=== PATIENT | female | born 1940 | race Caucasian/White ===

== ENCOUNTER 2022-05-08 10:40 | Inpatient (IN) ==
--- NOTE | 2022-05-08 11:34 | XRay Report ---
XR chest 2V PA/lateral CLINICAL HISTORY: Stroke alert. COMPARISON STUDY: No previous studies for comparison. FINDINGS: Left subclavian [id number] is in place. Tip projects over the distal brachiocephalic vei n. Cardiomegaly is noted without evidence for pulmonary edema. Linear bibasilar densities favor atele ctasis or scarring. There is no consolidation to suggest pneumonia. There is no evidence for pulmonar y edema. A moderate to large hiatal hernia is incidentally noted. IMPRESSION: 1. No acute cardiopulmonary findings. 2. Cardiomegaly. 3. Hiatal hernia. ACT 112: Negative or not required by law. Electronically signed by: David Duran M.D. 05/08/2022 11:32 AM
[2022-05-08 11:53] LABS: Hematocrit (blood only) 44.6 % (34.1-44.9); Hemoglobin 14.9 g/dl (12.0-16.0); Mean Corpuscular Hemoglobin 29.2 pg (25.0-34.0); Mean Corpuscular Hgb Conc 33.4 g/dL (32.0-36.0); Mean Corpuscular Volume 87.3 fL (80.0-100.0); Mean Platelet Volume 9.9 fL (9.4-12.3); Platelet Count 283 K/uL (130-400); RDW Coefficient of Variation 13.3 % (11.5-14.5); RDW Standard Deviation 42.8 fL (36.4-46.3); Red Blood Count 5.11 M/uL (3.93-5.22); White Blood Count 10.54 K/ul (4.8-10.8)
[2022-05-08 12:06] LABS: Partial Thromboplastin Ratio 1.1; Partial Thromboplastin Time 30.7 Seconds (21.0-31.0); Prothrombin Time 10.9 Seconds (9.0-12.0)
[2022-05-08 12:19] LABS: Albumin Globulin Ratio 1.1 (0.9-2); BUN Creatinine Ratio 17.6 (10-20); Bilirubin,Total 0.7 mg/dl (0.2-1.0); Calcium 9.3 mg/dl (8.5-10.1); Creatinine Clr Calc Pharmacy 48.5 ml/min; Est GFR (African American) 86.8 ml/min; Est GFR (Non-African American) 74.9 ml/min; Globulin 3.5 gm/dl (2.5-4.0); Magnesium 1.8 mg/dl (1.7-2.4); Potassium 3.9 mmol/L (3.5-5.1); Total Protein 7.5 gm/dl (6.0-8.3)
[2022-05-08 12:32] LABS: Influenza A virus by PCR Negative (Neg); Influenza B virus by PCR Negative (Neg); RSV by PCR Negative (Neg)
[2022-05-08 14:01] LABS: SARS CoV2 RNA(COVID-19) Ceph POSITIVE (Negative)
--- NOTE | 2022-05-08 14:35 | CT Scan Report ---
CT head/brain wo con CLINICAL HISTORY: 81 years-old Female with Stroke Alert. Acute stroke like symptoms TECHNIQUE: Multiple axial CT images of the head were obtained without contrast. A dose lowering tech nique was utilized adhering to the principles of ALARA. CT DOSE: 821.00 mGycm COMPARISON: None. FINDINGS: No acute intracranial hemorrhage, midline shift, intracranial mass, hydrocephalus, territorial ischem ia or abnormal extra-axial collection. Mild involutional changes of the brain parenchyma. Patchy whit e matter hypodensities suggestive of chronic microvascular ischemic disease. Cerebral vascular calcif ications. The calvarium is intact. Prior bilateral lens repair. Paranasal sinuses and left mastoid air cells ar e clear. Large right mastoid effusion. IMPRESSION: 1. No acute intracranial abnormality. 2. Large right mastoid effusion. ACT 112: Negative or not required by law. The above report was generated using voice recognition software. It may contain grammatical, syntax o r spelling errors. Electronically signed by: Cl Rangel M.D. 05/08/2022 2:34 PM
--- NOTE | 2022-05-08 17:36 | Emergency Department Note ---
Impression & Plan Slurred speech, Trouble swallowing, COVID-19, Myasthenia gravis with acute exacerbation ED Provider Note NAME: MATTI SYED AGE: 81 SEX: F : 1940 ARRIVES VIA: Walk-In INFORMANT: [Patient][daughter] ED PROVIDER(S): [Chandrakant Trujillo MD] CHIEF COMPLAINT: Stroke symptoms HISTORY OF PRESENT ILLNESS: The patient is an 81-year-old female who presents with about 24 hours of symptoms. She has a history of myasthenia. She is due to receive IVIG in about 3 days. The patient is followed by Dr. Luis of neurology here at [facility]. The patient yesterday began having difficulty with her speech and difficulty swallowing. She has a history of aspiration from trouble swallowing. She denies extremity weakness. The patient did have a fever yesterday, none today. She denies any cough or shortness of breath. No vomiting or diarrhea, no urinary complaints. No chest pain or abdominal pain. Patient's daughter recently had a cold. REVIEW OF SYSTEMS: See HPI for pertinent positives and negatives. A total of ten systems were r eviewed and were otherwise negative. PMHx/PSHx: See Below SOCIAL HISTORY: See Below. PHYSICAL EXAM: GENERAL: Patient is in no acute distress. HEENT: No acute trauma, normocephalic atraumatic, mucous membranes moist, no nasal congestion, no scleral icterus. NECK: No stridor, no adenopathy, no meningismus, trachea is midline. LUNGS: Clear to auscultation bilaterally, no wheeze, no rhonchi, breath sounds equal. HEART: Without murmurs gallops or rubs, regular rate and rhythm. ABDOMEN: Soft, nontender, bowel sounds positive, no peritonitis. EXTREMITIES: No cyanosis or edema, full range of motion of all the joints without pain or difficulty, no signs for acute trauma. NEUROLOGIC: Oriented x 3. No extremity deficits appreciated. Patient's speech is somewhat garbled/slurred and faint. No facial droop. SKIN: No rash, no jaundice, no diaphoresis. DIFFERENTIAL DIAGNOSIS: Myasthenia's gravis flare, pneumonia, infection, UTI, RSV, influenza, COVID-19, anemia, electrolyte imbalance, stroke, dysrhythmia, among others. EMERGENCY DEPARTMENT COURSE/PROCEDURES: ECG: Indication was possible stroke. The ECG shows a normal sinus rhythm with a rate of 91. 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 There is no ST elevation, no PVCs. The QTc is 494. No old ECGs available for comparison. Continuous Cardiac Monitoring: An order was placed for continuous cardiac monitoring. The monitor shows a rate of 95 with normal sinus rhythm. MEDICAL DECISION MAKING: There is no leukocytosis or concerning anemia. There is a normal platelet co unt. No coagulopathy. No significant electrolyte abnormality or renal failure. No concerning liver enzyme elevation. COVID test returned positive. Influenza and RSV test returned negative. ECG showed a normal sinus rhythm, no ischemia. Brain CT did not show any acute bleed or mass-effect. A right mastoid effusion was seen. Chest x-ray did not show CHF or pneumonia. On exam, patient has some slurred and thickened speech. No extremity weakness or deficits. She was not hypoxic or toxic. I did speak with neurology. IVIG was recommended. The patient does require a hospital stay though for this treatment. She appears to be having a myasthenia gravis flare. I believe the flare has been brought on by the COVID-19 infection. I did speak with the patient and her family, I spoke with case management, the on-call hospitalist was consulted. Past Med/Surg History Medical History Fibromyalgia History of asthma Hx of myasthenia gravis Hx of primary hypertension Osteoarthritis Port-A-Cath in place Surgical History H/O blepharoplasty june eyes History of tonsillectomy and adenoidectomy Hx of hysterectomy Family History Father Heart valve replaced Cancer of esophagus Mother Diabetes Social History Smoking Status: Never smoker Second Hand Exposure: No; Do You Dip or Chew Tobacco: No; Hx Alcohol Use: Yes Alcohol type: beer and wine Alcohol Intake Frequency: Monthly or Less Hx Substance Use: No Preferred Language: Sami Communication Ability: Effective Communication Ability Comment: sppech low volume and needs more effort Visual Impairment: Limited Hearing Ability: Use of Hearing Aid Outreach Team Member Required: No Beliefs That Will Affect Care: None marital status details: Current Living Situation: Alone Current Living Situation Comment: daughter very involved and availble to patient current occupational status: retired Feels Safe at Home: Yes Safety Concerns: Feels Safe At This Time Childhood Exposure to Second-Hand Smoke: Yes caffeine: Yes (tea and pepsi) Dental Care, Regularly: No Physical Activity Frequency: 3-4 Times per Week Seatbelt Use: always Sunscreen Use: Yes Assistive Devices: Denture - Upper, Denture - Lower, Glasses, Hearing Aid - Left and Hearing Aid - Right Allergies Allergies Allergy/AdvReac Type Severity Reaction Status Date / Time clindamycin Allergy Intermediate Rash Verified 04/13/22 09:01 Penicillins Allergy Intermediate Rash Verified 04/13/22 09:01 diazepam [From Valium] AdvReac Severe Vomiting Verified 04/13/22 09:01 mometasone furoate AdvReac Intermediate Vomiting Verified 04/13/22 09:01 [From Nasonex] Home Meds Home Medications Medication Instructions Recorded Confirmed cyclosporine 0.05 % eye drops in a 1 drp ophthalmic (eye) Q12H 01/26/22 05/08/22 dropperette fluticasone fur. 100 mcg-umeclid 1 inh inhalation DAILY 01/26/22 05/08/22 62.5 mcg-vilant 25 mcg inhalat.powder (Trelegy Ellipta) losartan 100 mg tablet (Cozaar) 100 mg PO DAILY 01/26/22 05/08/22 mirabegron 50 mg tablet,extended 50 mg PO DAILY 01/26/22 05/08/22 release 24 hr (Myrbetriq) montelukast 10 mg tablet 10 mg PO DAILY 01/26/22 05/08/22 (Singulair) folic acid 1 mg tablet 1 mg PO DAILY 02/16/22 05/08/22 Previous Rx's Medication Instructions Recorded pyridostigmine bromide 60 mg 90 mg PO QID 30 days #180 tabs 01/26/22 tablet (Mestinon) Gammagard Liquid 10 % injection 30 g IV Q4WK 28 days #300 mL 02/09/22 solution (immun glob G(IgG)-gly-IgA ov50) glycopyrrolate 1 mg tablet 1 mg PO DAILY #30 tabs 04/17/22 Results & Data (ED) Vital Signs Vital Signs - 24 hr 05/08/22 10:47 Temperature 36.3 C L Temperature Source Oral Pulse Rate 95 H Respiratory Rate 20 Respiratory Effort / Characteristics Non-Labored Spontaneous Respiratory Depth Normal Respiratory Pattern Regular Blood Pressure 177/82 H Blood Pressure Mean 113 Pulse Oximetry 95 Oxygen Delivery Method Room Air Sepsis Recent Fever Within 48 Hours Yes Sepsis New/Unexplained Change in Mental Status No Sepsis Action Taken by Nursing No Action Required Home Medications Current Medication List: was personally reviewed by me Laboratory Data Attestation: I reviewed the patient's lab results. Result diagrams: 05/08/22 11:42 05/08/22 11:42 Lab Results 05/08/22 05/08/22 05/08/22 Range/Units 11:40 11:42 11:42 WBC 10.54 (4.8-10.8) K/ul RBC 5.11 (3.93-5.22) M/uL Hgb 14.9 (12.0-16.0) g/dl Hct 44.6 (34.1-44.9) % MCV 87.3 (80.0-100.0) fL MCH 29.2 (25.0-34.0) pg MCHC 33.4 (32.0-36.0) g/dL RDW Std Deviation 42.8 (36.4-46.3) fL RDW Coeff of Rowan 13.3 (11.5-14.5) % Plt Count 283 (130-400) K/uL MPV 9.9 (9.4-12.3) fL PT 10.9 (9.0-12.0) Seconds INR 1.0 (0.9-1.1) APTT 30.7 (21.0-31.0) Seconds PTT Ratio 1.1 Sodium (136-145) mmol/L Potassium (3.5-5.1) mmol/L Chloride (98-107) mmol/L Carbon Dioxide (21-32) mmol/L Anion Gap (3-11) BUN (6-23) mg/dl Creatinine (0.6-1.2) mg/dl Est Cr Clr Drug Dosing ml/min Est GFR ( Amer) ml/min Est GFR (Non-Af Amer) ml/min BUN/Creatinine Ratio (10-20) Glucose (70-99(Fasting)) mg/dl Calcium (8.5-10.1) mg/dl Magnesium (1.7-2.4) mg/dl Total Bilirubin (0.2-1.0) mg/dl AST (13-39) U/L ALT (7-52) U/L Alkaline Phosphatase (34-104) U/L C-Reactive Protein (0-0.5) mg/dl Total Protein (6.0-8.3) gm/dl Albumin (3.4-5.0) gm/dl Globulin (2.5-4.0) gm/dl Albumin/Globulin Ratio (0.9-2) SARS-CoV-2 (PCR) POSITIVE A* (Negative) Influenza Type A (PCR) Negative (Neg) Influenza Type B (PCR) Negative (Neg) RSV (RT-PCR) Negative (Neg) 05/08/22 05/08/22 Range/Units 11:42 11:42 WBC (4.8-10.8) K/ul RBC (3.93-5.22) M/uL Hgb (12.0-16.0) g/dl Hct (34.1-44.9) % MCV (80.0-100.0) fL MCH (25.0-34.0) pg MCHC (32.0-36.0) g/dL RDW Std Deviation (36.4-46.3) fL RDW Coeff of Rowan (11.5-14.5) % Plt Count (130-400) K/uL MPV (9.4-12.3) fL PT (9.0-12.0) Seconds INR (0.9-1.1) APTT (21.0-31.0) Seconds PTT Ratio Sodium 138 (136-145) mmol/L Potassium 3.9 (3.5-5.1) mmol/L Chloride 103 (98-107) mmol/L Carbon Dioxide 29 (21-32) mmol/L Anion Gap 6 (3-11) BUN 13 (6-23) mg/dl Creatinine 0.74 (0.6-1.2) mg/dl Est Cr Clr Drug Dosing 48.5 ml/min Est GFR ( Amer) 86.8 ml/min Est GFR (Non-Af Amer) 74.9 ml/min BUN/Creatinine Ratio 17.6 (10-20) Glucose 107 H (70-99(Fasting)) mg/dl Calcium 9.3 (8.5-10.1) mg/dl Magnesium 1.8 (1.7-2.4) mg/dl Total Bilirubin 0.7 (0.2-1.0) mg/dl AST 15 (13-39) U/L ALT 10 (7-52) U/L Alkaline Phosphatase 125 H (34-104) U/L C-Reactive Protein 4.84 H (0-0.5) mg/dl Total Protein 7.5 (6.0-8.3) gm/dl Albumin 4.0 (3.4-5.0) gm/dl Globulin 3.5 (2.5-4.0) gm/dl Albumin/Globulin Ratio 1.1 (0.9-2) SARS-CoV-2 (PCR) (Negative) Influenza Type A (PCR) (Neg) Influenza Type B (PCR) (Neg) RSV (RT-PCR) (Neg) Administered Medications Acetaminophen (Acetaminophen 500 Mg Tab) 500 mg PO PRE-TREAT@0 [facility] Stop: 05/12/22 22:01 Last Admin: 05/08/22 22:29 Dose: 500 mg Documented By: ANDREW Diphenhydramine HCl (Diphenhydramine 50 Mg/Ml Vial) 12.5 mg IV PRE-TREAT@0 [facility] Stop: 05/12/22 22:01 Last Admin: 05/08/22 22:29 Dose: 12.5 mg Documented By: ANDREW Guaifenesin (Guaifenesin 600 Mg Tabcr) 1,200 mg PO Q12 [facility] Stop: 06/07/22 23:19 Last Admin: 05/08/22 23:50 Dose: 1,200 mg Documented By: ANDREW Heparin Sodium (Porcine) (Heparin Sod 5,000 Unit/0.5 Ml Vial) 5,000 units SQ Q12 [facility] Stop: 06/07/22 21:31 Last Admin: 05/08/22 22:28 Dose: 5,000 units Documented By: ANDREW Lactated Ringer's (Lr) 1,000 mls @ 80 mls/hr IV .[id number] [facility] Stop: 06/07/22 18:44 Last Infusion: 05/09/22 00:08 Dose: 80 mls/hr Documented By: Infusion: 05/08/22 22:50 Dose: 0 mls/hr Documented By: Admin: 05/08/22 19:33 Dose: 80 mls/hr Documented By: ARIC Immune Globulin (Octagam 10%) 200 mls @ 39 mls/hr IV DAILY@2300 [facility]; Protocol Stop: 05/13/22 04:08 Last Admin: 05/09/22 00:01 Dose: 1 mg/kg/min, 39 mls/hr Documented By: ANDREW Immune Globulin (Octagam 10%) 50 mls @ 39 mls/hr IV DAILY@2230 [facility]; Protocol Stop: 05/12/22 23:47 Last Titration: 05/09/22 00:09 Dose: 0 mg/kg/min, 0 mls/hr Documented By: Admin: 05/08/22 22:48 Dose: 1 mg/kg/min, 39 mls/hr Documented By: ANDREW Miscellaneous (Order Awaiting Action: Cyclosporine 0.05 % Dropperette) 1 each N/A QS [facility] Stop: 06/08/22 00:00 Last Admin: 05/09/22 00:08 Dose: Not Given Documented By: ANDREW Pyridostigmine [place] (Pyridostigmine [place] 60 Mg Tab) 90 mg PO QID [facility] Stop: 06/07/22 21:31 Last Admin: 05/08/22 22:28 Dose: 90 mg Documented By: ANDREW Discontinued Medications Immune Globulin (Immune Globulin (Human) Soln ) 1 each IV DAILY [facility] Stop: 06/07/22 21:31 Last Admin: 05/08/22 23:00 Dose: Not Given Documented By: ANDREW Imaging Data Radiologist's Impression: Head CT 05/08/22 11:47 CT head/brain wo con CLINICAL HISTORY: 81 years-old Female with Stroke Alert. Acute stroke like symptoms TECHNIQUE: Multiple axial CT images of the head were obtained without contrast. A dose lowering technique was utilized adhering to the principles of ALARA. CT DOSE: 821.00 mGycm COMPARISON: None. FINDINGS: No acute intracranial hemorrhage, midline shift, intracranial mass, hydrocephalus, territorial ischemia or abnormal extra-axial collection. Mild involutional changes of the brain parenchyma. Patchy white matter hypodensities suggestive of chronic microvascular ischemic disease. Cerebral vascular calcifications. The calvarium is intact. Prior bilateral lens repair. Paranasal sinuses and left mastoid air cells are clear. Large right mastoid effusion. IMPRESSION: 1. No acute intracranial abnormality. 2. Large right mastoid effusion. ACT 112: Negative or not required by law. The above report was generated using voice recognition software. It may contain grammatical, syntax or spelling errors. Electronically signed by: Cl Rangel M.D. 05/08/2022 2:34 PM XR chest 2V PA/lateral CLINICAL HISTORY: Stroke alert. COMPARISON STUDY: No previous studies for comparison. FINDINGS: Left subclavian Hdiuhe-i-Xlig is in place. Tip projects over the distal brachiocephalic vein. Cardiomegaly is noted without evidence for pulmonary edema. Linear bibasilar densities favor atelectasis or scarring. There is no consolidation to suggest pneumonia. There is no evidence for pulmonary edema. A moderate to large hiatal hernia is incidentally noted. IMPRESSION: 1. No acute cardiopulmonary findings. 2. Cardiomegaly. 3. Hiatal hernia. Discharge Plan Visit Data Chief Complaint: Stroke/CVA Symptoms Stated Complaint: TROUBLE SPEAKING/SWALLOWING, EYE PROBLEMS ED Provider: Chandrakant Trujillo Discharge Problem: Slurred speech, Trouble swallowing, COVID-19, Myasthenia gravis with acute exacerbation Patient Disposition: Admitted As Inpatient Condition: Fair Discharge Instructions Interventions: ED Discharge Assessment Last Done: 05/08/22 20:59
--- NOTE | 2022-05-08 18:18 | History & Physical Report ---
Date of Service May 08, 2022 Assessment & Plan (1) Myasthenia gravis: Plan: oCrtney is an 81-year-old female the past medical history of myasthenia gravis who presents with worsened myasthenia symptoms and who is COVID-positive. COVID-positive Patient is vaccinated/boosted No respiratory symptoms, some feeling feverish 1 day ago but presented with worsened myasthenia symptoms No hypoxia CRP pending Defer steroids at this time as not hypoxic, may have secondary benefit with myasthenia Acute myasthenia exacerbation Neurology consulted. Recommended standard dosing of IVIG. N.p.o. pending improvement in neck/swallow function No hypoxia, lungs are clear, low suspicion for aspiration or superimposed pneumonia at this time Follow on aspiration precautions IVIG 400 mg/kg x 5-day dose ordered, can adjust per neurology recommendation/follow-up Continue pyridostigmine Hypertension Continue losartan COPD No acute exacerbation Continue Trelegy Albuterol as needed His breathing on room air DVT prophylaxis: Discussed for/benefits of COVID DVT prophylaxis. Patient hesitant due to easy bleeding in the past and low creatinine clearance. Will use heparin twice daily at this time after shared decision making CODE STATUS: Full code Disposition: Medical/surgical, if concerns for worsening airway transfer to telemetry. Patient is guarding airway appropriately at time of visit. Diet: N.p.o. (2) COVID: History of Present Illness Primary Care Provider: Femi Moreno Suspect myesthenia gravis flare 2/2 COVID PNA. Daughter with cold last week Pt with grabling, weak voice last week increased trouble swallowing in last 24 hours Hx aspiration with m. gravis flares in the past Fever yesterday, none today no body aches COVID+ Nuerology: IVIG Dr. Mesha hernandez. Neuro consulted for AM. Denies cough, shortness of breath, lightheadedness, dizziness, chest pain, chest pressure. Patient Dors she is tired and fatigued, and cannot swallow. Is having difficulty speaking. She reports at baseline her voice is clear and she does not have any problems with eye drooping, dysphagia. Please have occurred in the last 24 hours consistent with prior flares. She does get IVIG as an outpatient, was due next week for her next routine dose. Has never been on steroids before. Daughter with COVID at home. Patient has not had any shortness of breath, difficulty breathing but did notice worsened difficulty with speech and swallowing similar to prior dysarthria flares.Takes pyridostigmine, glycopyrrolate, cyclosporine eyedrops at home in addition to her inhaler, mirabegron, montelukast. Has a port which they normally use for IVIG infusions CT-H: 1. No acute intracranial abnormality. 2. Large right mastoid effusion. CXR: 1. No acute cardiopulmonary findings. 2. Cardiomegaly.3. Hiatal hernia. CRP pending M. gravix 400mg/kg daily x5 days Medical History: Reviewed Medications: Reviewed Surgical History: Reviewed Allergies: Reviewed Social History: Reviewed Code Status: Full code Allergies Allergy/AdvReac Type Severity Reaction Status Date / Time clindamycin Allergy Intermediate Rash Verified 04/13/22 09:01 Penicillins Allergy Intermediate Rash Verified 04/13/22 09:01 diazepam [From Valium] AdvReac Severe Vomiting Verified 04/13/22 09:01 mometasone furoate AdvReac Intermediate Vomiting Verified 04/13/22 09:01 [From Nasonex] Home Medications Medication Instructions Recorded Confirmed Type cyclosporine 0.05 % eye drops in a 1 drp ophthalmic (eye) Q12H 01/26/22 04/13/22 History dropperette fluticasone fur. 100 mcg-umeclid 1 inh inhalation DAILY 01/26/22 04/13/22 History 62.5 mcg-vilant 25 mcg inhalat.powder (Trelegy Ellipta) losartan 100 mg tablet (Cozaar) 100 mg PO DAILY 01/26/22 04/13/22 History mirabegron 50 mg tablet,extended 50 mg PO DAILY 01/26/22 04/13/22 History release 24 hr (Myrbetriq) montelukast 10 mg tablet 10 mg PO DAILY 01/26/22 04/13/22 History (Singulair) pyridostigmine bromide 60 mg 90 mg PO QID 30 days #180 tabs 01/26/22 04/13/22 Rx tablet (Mestinon) Gammagard Liquid 10 % injection 30 g IV Q4WK 28 days #300 mL 02/09/22 04/13/22 Rx solution (immun glob G(IgG)-gly-IgA ov50) folic acid 1 mg tablet 1 mg PO DAILY 02/16/22 04/13/22 History glycopyrrolate 1 mg tablet 1 mg PO DAILY #30 tabs 04/17/22 Rx Past Med/Surg History Medical History (Updated 05/08/22 @ 18:39 by Bryan Moreira MD) Fibromyalgia History of asthma Hx of myasthenia gravis Hx of primary hypertension Osteoarthritis Port-A-Cath in place Surgical History H/O blepharoplasty june eyes History of tonsillectomy and adenoidectomy Hx of hysterectomy Family History Father Heart valve replaced Cancer of esophagus Mother Diabetes Social History Smoking Status: Never smoker Hx Alcohol Use: Yes Alcohol type: wine Alcohol Intake Frequency: Monthly or Less Hx Substance Use: No Preferred Language: Greek Communication Ability: Effective Visual Impairment: Limited Hearing Ability: Use of Hearing Aid Beliefs That Will Affect Care: Spiritual marital status details: Current Living Situation: Alone and Family Current Living Situation Comment: lives with daughter current occupational status: retired Feels Safe at Home: Yes Childhood Exposure to Second-Hand Smoke: Yes caffeine: Yes (tea and pepsi) Dental Care, Regularly: No Physical Activity Frequency: 3-4 Times per Week Seatbelt Use: always Sunscreen Use: Yes Review of Systems Review of Systems: All systems reviewed & are unremarkable except as noted in Subjective Physical Exam Physical Exam: General: Fatigued, sitting in chair, slightly slumped over. Dysarthria is prominent. Oriented to name, date, and place. HEENT: Atraumatic, normocephalic. Pupils equal and reactive to light. Vertical gaze quickly fatigues. Vision/hearing grossly intact. Left eye droop. Difficulty speaking/dysarthria as noted Pulm: CTAB A&P. -wheezes, -rales, -rhonchi. Symmetrical chest rise. No increase in work of breathing. No respiratory distress. No airway obstruction. Cardiac: Tachycardic. Radial pulses intact and symmetrical. Extremities: Warm, dry. 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 Sensation of soft touch intact in hands and feet. Results & Data Results & Data ([facility]) Vital Signs (Past 12 Hours) Vital Signs Temp Pulse Resp BP Pulse Ox O2 Del Method 05/08/22 10:47 36.3 C L 95 H 20 177/82 H 95 Room Air PG Care Time/CCT Total # of Minutes Spent Total Time Spent with Patient: Total time spent is greater than 50% in coordination of care (as documented) at patient's floor/unit and/or counseling patient: Coding Level of Care Code 32136 Initial Inpt Care Lvl 2 Diagnoses Myasthenia gravis G70.00 COVID U07.1
[2022-05-08] MEDS: LACTATED RINGER'S 1,000 ML IV SCH (19:33)
[2022-05-08] MEDS ORDERED: IMMUNE GLOBULIN (HUMAN) SOLN IV SCH (21:32)
[2022-05-08] MEDS: HEPARIN SOD 5,000 UNIT/0.5 ML VIAL SQ SCH (22:28)
[2022-05-08] MEDS: pyRIDostigmine bromide 60 MG TAB PO SCH (22:28)
[2022-05-08] MEDS: ACETAMINOPHEN 500 MG TAB PO SCH (22:29)
[2022-05-08] MEDS: diphenhydrAMINE 50 MG/ML VIAL IV SCH (22:29)
[2022-05-08] MEDS: Octagam 10% IVIG 5 gram bottle IV SCH (22:48)
[2022-05-08] MEDS: guaiFENesin 600 MG TABCR PO SCH (23:50)
[2022-05-09] MEDS: IMMUN GLOBG(IGG)/MALT/IGA OV50 200 ML IV SCH (00:01)
[2022-05-09] MEDS ORDERED: NON-FORMULARY MEDICATION (Fluticasone-Umeclidin-Vilanter [Trelegy Ellipta] 100-62.5-25 mcg INH SCH (09:00)
[2022-05-09] MEDS: guaiFENesin 600 MG TABCR PO SCH ×2 (09:34→20:48)
[2022-05-09] MEDS: GLYCOPYRROLATE 1 MG TAB PO SCH (09:35)
[2022-05-09] MEDS: MIRABEGRON ER 25 MG TAB PO SCH (09:35)
[2022-05-09] MEDS: LOSARTAN POTASSIUM 50 MG TAB PO SCH (09:35)
[2022-05-09] MEDS: pyRIDostigmine bromide 60 MG TAB PO SCH ×4 (09:36→20:48)
[2022-05-09] MEDS: MONTELUKAST SODIUM 10 MG TABLET PO SCH (09:36)
[2022-05-09] MEDS: FOLIC ACID 1 MG TAB PO SCH (09:36)
[2022-05-09] MEDS: ACETAMINOPHEN 325 MG TAB PO PRN ×2 (09:38→19:43)
[2022-05-09] MEDS: HEPARIN SOD 5,000 UNIT/0.5 ML VIAL SQ SCH ×2 (09:39→20:48)
[2022-05-09] MEDS: FLUTICASONE FUROATE 100MCG 14 PUFFS/INHALER INH SCH (09:43)
[2022-05-09] MEDS: UMECLIDINIUM/VILANTEROL 62.5/25MCG 7 PUFFS/INHALER INH SCH (09:43)
[2022-05-09] MEDS: LACTATED RINGER'S 1,000 ML IV SCH ×2 (09:49→23:07)
--- NOTE | 2022-05-09 11:02 | Neurology Consultation ---
Date of Consultation May 09, 2022 Assessment & Plan (1) Myasthenia gravis with acute exacerbation: Myasthenia gravis, generally well controlled but now with acute flare. She was due to have her normal IVIG in the coming week, but may have flared due to the COVID infection. She received 1 infusion of IVIG last evening, will plan for a total course of 5 treatments over the next 4 days. Continue Mestinon at home dose. A pulse treatment of steroids might significantly worsen the patient's myasthenia, but if absolutely needed from a pulmonary standpoint, it should be undertaken. However would use the lowest dose possible. Respiratory reports patient had NIF of -30 last evening. Have asked them to begin checking NIF and FVC every 8 hours for 48 hours. Is very important that the patient continue to receive her oral Mestinon exactly as prescribed. If any point she becomes unable to take them, a tube should be placed temporarily so that they can be administered. History of Present Illness Reason for Consultation: Myasthenia gravis Attending Physician: Shawn Washington History of Present Illness Patient says her myasthenia was well controlled until 2 days ago, when she began to have slurred speech and some trouble swallowing. Apparently she is relatively asymptomatic at baseline. The last time she had symptoms was January of this year, relieved by IVIG. Apparently she is maintained on IVIG 1 treatment monthly. Apparently does not receive any other type of immunosuppressive and never did. Also on Mestinon, she reports faithful compliance. Was found to have COVID this admission, she reports minimal symptoms however. Says she has never had shortness of breath associated with her myasthenia, has never been on a ventilator. No weakness in the limbs. Denies any new medications Allergies Allergy/AdvReac Type Severity Reaction Status Date / Time clindamycin Allergy Intermediate Rash Verified 04/13/22 09:01 Penicillins Allergy Intermediate Rash Verified 04/13/22 09:01 diazepam [From Valium] AdvReac Severe Vomiting Verified 04/13/22 09:01 mometasone furoate AdvReac Intermediate Vomiting Verified 04/13/22 09:01 [From Nasonex] Home Medications Medication Instructions Recorded Confirmed Type cyclosporine 0.05 % eye drops in a 1 drp ophthalmic (eye) Q12H 01/26/22 05/08/22 History dropperette fluticasone fur. 100 mcg-umeclid 1 inh inhalation DAILY 01/26/22 05/08/22 History 62.5 mcg-vilant 25 mcg inhalat.powder (Trelegy Ellipta) losartan 100 mg tablet (Cozaar) 100 mg PO DAILY 01/26/22 05/08/22 History mirabegron 50 mg tablet,extended 50 mg PO DAILY 01/26/22 05/08/22 History release 24 hr (Myrbetriq) montelukast 10 mg tablet 10 mg PO DAILY 01/26/22 05/08/22 History (Singulair) pyridostigmine bromide 60 mg 90 mg PO QID 30 days #180 tabs 01/26/22 05/08/22 Rx tablet (Mestinon) Gammagard Liquid 10 % injection 30 g IV Q4WK 28 days #300 mL 02/09/22 05/08/22 Rx solution (immun glob G(IgG)-gly-IgA ov50) folic acid 1 mg tablet 1 mg PO DAILY 02/16/22 05/08/22 History glycopyrrolate 1 mg tablet 1 mg PO DAILY #30 tabs 04/17/22 05/08/22 Rx Patient History Medical History Fibromyalgia History of asthma Hx of myasthenia gravis Hx of primary hypertension Osteoarthritis Port-A-Cath in place Surgical History H/O blepharoplasty june eyes History of tonsillectomy and adenoidectomy Hx of hysterectomy Family History Father Heart valve replaced Cancer of esophagus Mother Diabetes Social History Smoking Status: Never smoker Second Hand Exposure: No; Do You Dip or Chew Tobacco: No; Hx Alcohol Use: Yes Alcohol type: beer and wine Alcohol Intake Frequency: Monthly or Less Hx Substance Use: No Preferred Language: Stateless Communication Ability: Effective Communication Ability Comment: sppech low volume and needs more effort Visual Impairment: Limited Hearing Ability: Use of Hearing Aid [employer] Required: No Beliefs That Will Affect Care: None marital status details: Current Living Situation: Alone Current Living Situation Comment: daughter very involved and availble to patient current occupational status: retired Feels Safe at Home: Yes Safety Concerns: Feels Safe At This Time Childhood Exposure to Second-Hand Smoke: Yes caffeine: Yes (tea and pepsi) Dental Care, Regularly: No Physical Activity Frequency: 3-4 Times per Week Seatbelt Use: always Sunscreen Use: Yes Assistive Devices: Denture - Upper, Denture - Lower, Glasses, Hearing Aid - Left and Hearing Aid - Right Review of Systems Review of Systems: As above, no trips or falls. No recent head injuries. Physical Exam Physical Exam: Awake, alert, attentive. In no distress. She is oriented. Speech is slightly slurred but intelligible. Slight nasal quality to voice. Repetitive phonemes are mostly intact. Seems to have no trouble swallowing her secretions. Pupils are equal. There is a slight ptosis on the left. Ocular movements are full. No resting facial asymmetry, but on activation of the facial muscles, definite bifacial weakness. She can fully open and close both eyes with effort. She can retract lips reasonably well bilaterally. Strength in the limbs is reasonably good for age. Fine finger movements and finger-nose testing done well. Results & Data ([facility]) Vital Signs (Past 12 Hours) Vital Signs Temp Pulse Resp BP Pulse Ox O2 Del Method 05/09/22 07:55 36.7 C 89 16 146/80 H 92 Room Air 05/09/22 05:35 83 20 94 Room Air 05/09/22 05:32 36.7 C 86 22 177/99 H 94 Room Air 05/08/22 23:30 18 Room Air
--- NOTE | 2022-05-09 14:47 | Hospitalist Progress Note ---
Date of Service May 09, 2022 Assessment & Plan (1) Myasthenia gravis: Plan: with exacerbation - 2nd to #2. at high risk of further decompensation and respiratory failure. appreciate neurology consultation. cont mestinon qid. IVIG x 5 days per neuro - first dose yesterday, 2nd dose today. cont q8h NIF readings per respiratory. will move patient from 3rd floor to PCU for closer observation. (2) COVID: Plan: COVID-19, just a few days into her illness. o2 sats borderline low - placed 2 L NC O2 on her this afternoon. start Remdesivir x 5 days with serial ast/alt/Cr levels. defer on steroids for now. supportive care, flutter valve, lay on side as much as possible, etc. add mucinex BID. check CRP in am. (3) Asthma with exacerbation: Plan: 2nd to COVID-19 infection. defer on steroids for now unless there is worsening hypoxia/wheezing/o2 requirement/etc. (4) DVT prophylaxis: Plan: heparin 5000 BID (5) Dysphagia: Plan: appreciate speech consultation (6) Chronic hypertension: Plan: cont losartan (7) Candidiasis of mouth and esophagus: Plan: suspected start nystatin 5cc qid swish/spit Plan attempted to call family this evening - left message Admission and Anticipated Discharge Date Admission Date: May 08, 2022 Subjective patient feels tired & exhausted just wants to sleep coughing - no sputum/dry no dyspnea at rest but some dyspnea with moving around her main concern is the dysphagia and marbly speech - no better/no worse than prior denies vomiting or diarrhea NIF value: -20 x 3 readings VC value: 0.7 tolerated IVIG today Review of Systems Review of Systems: gen - no fevers, no chills; very poor appetite cv - no chest pain or orthopnea pulm - minimal sputum if any GI - no abd pain musculo - no myalgias Physical Exam Physical Exam: gen - looks very tired, fatigued; bronchial cough; o2 sats 90- 91% in RA during my rounds mouth - MM dry, erythematous tongue neck - no JVD heart - RRR,s1,s2, no murmur lungs - scattered wheezes, scattered rales bases, no distress abd - soft NT ND BS+ neuro - garbled/marbly speech; strength in arms/legs about 5/5; no facial drooop ext - no edema, pulses 2+ b/l Results & Data Results & Data ([facility]) Vital Signs (Past 12 Hours) Vital Signs Temp Pulse Resp BP Pulse Ox O2 Del Method 05/09/22 11:50 Room Air 05/09/22 07:55 36.7 C 89 16 146/80 H 92 Room Air 05/09/22 05:35 83 20 94 Room Air 05/09/22 05:32 36.7 C 86 22 177/99 H 94 Room Air Laboratory Results Laboratory Results - last 24 hr 05/08/22 05/09/22 11:42 09:01 C-Reactive Protein 4.84 H 6.20 H PG Care Time/CCT Total # of Minutes Spent Total Time Spent with Patient: Total time spent is greater than 50% in coordination of care (as documented) at patient's floor/unit and/or counseling patient: Coding Level of Care Code 08900 Subseq Hosp Care Lvl 3 Diagnoses Myasthenia gravis G70.00 COVID U07.1 Asthma with exacerbation J45.901 DVT prophylaxis Z29.9 Dysphagia R13.10 Chronic hypertension I10 Candidiasis of mouth and esophagus B37.81; B37.0
[2022-05-09] MEDS ORDERED: REMDESIVIR 200 MG in SODIUM CHLORIDE 0.9% 210 ML IV STA (14:52)
[2022-05-09] MEDS: NYSTATIN SUSP 500,000 U/5 ML UDC PO SCH ×2 (18:09→20:48)
[2022-05-09] MEDS: ACETAMINOPHEN 500 MG TAB PO SCH (22:23)
[2022-05-09] MEDS: diphenhydrAMINE 50 MG/ML VIAL IV SCH (22:24)
[2022-05-09] MEDS: Octagam 10% IVIG 5 gram bottle IV SCH (23:17)
[2022-05-10] MEDS: IMMUN GLOBG(IGG)/MALT/IGA OV50 200 ML IV SCH (00:21)
[2022-05-10 07:44] LABS: Basophils # (auto) 0.02 K/uL (0-0.2); Basophils % (auto) 0.5 %; Eosinophils # (auto) 0.02 K/uL (0-0.50); Eosinophils % (auto) 0.5 %; Hematocrit (blood only) 37.9 % (34.1-44.9); Hemoglobin 12.7 g/dl (12.0-16.0); Immature Granulocytes # (auto) 0.01 K/uL (0.00-0.02); Immature Granulocytes % (auto) 0.2 %; Lymphocytes # (auto) 0.65 K/uL (1.2-3.4); Mean Corpuscular Hemoglobin 29.4 pg (25.0-34.0); Mean Corpuscular Hgb Conc 33.5 g/dL (32.0-36.0); Mean Corpuscular Volume 87.7 fL (80.0-100.0); Mean Platelet Volume 10.3 fL (9.4-12.3); Monocytes # (auto) 0.35 K/uL (0.24-0.82); Monocytes % (auto) 8.6 %; Neutrophils # (auto) 3.01 K/uL (1.4-6.5); Neutrophils % (auto) 74.2 %; Platelet Count 188 K/uL (130-400); RDW Coefficient of Variation 13.2 % (11.5-14.5); RDW Standard Deviation 42.5 fL (36.4-46.3); Red Blood Count 4.32 M/uL (3.93-5.22); White Blood Count 4.06 K/ul (4.8-10.8)
[2022-05-10 08:12] LABS: Albumin Globulin Ratio 0.6 (0.9-2); Albumin Level 2.8 gm/dl (3.4-5.0); BUN Creatinine Ratio 15.4 (10-20); Bilirubin,Total 0.3 mg/dl (0.2-1.0); C Reactive Protein 4.53 mg/dl (0-0.5); Est GFR (African American) 102.4 ml/min; Est GFR (Non-African American) 88.4 ml/min; Globulin 4.4 gm/dl (2.5-4.0); Magnesium 1.6 mg/dl (1.7-2.4); Phosphorus 2.5 mg/dl (2.5-4.9); Potassium 3.3 mmol/L (3.5-5.1); Total Protein 7.2 gm/dl (6.0-8.3)
[2022-05-10] MEDS: UMECLIDINIUM/VILANTEROL 62.5/25MCG 7 PUFFS/INHALER INH SCH (08:13)
[2022-05-10] MEDS: guaiFENesin 600 MG TABCR PO SCH ×2 (08:13→21:04)
[2022-05-10] MEDS: MONTELUKAST SODIUM 10 MG TABLET PO SCH (08:13)
[2022-05-10] MEDS: FLUTICASONE FUROATE 100MCG 14 PUFFS/INHALER INH SCH (08:13)
[2022-05-10] MEDS: FOLIC ACID 1 MG TAB PO SCH (08:13)
[2022-05-10] MEDS: GLYCOPYRROLATE 1 MG TAB PO SCH (08:13)
[2022-05-10] MEDS: NYSTATIN SUSP 500,000 U/5 ML UDC PO SCH ×4 (08:13→21:04)
[2022-05-10] MEDS: LOSARTAN POTASSIUM 50 MG TAB PO SCH (08:13)
[2022-05-10] MEDS: MIRABEGRON ER 25 MG TAB PO SCH (08:13)
[2022-05-10] MEDS: pyRIDostigmine bromide 60 MG TAB PO SCH ×4 (08:14→21:03)
[2022-05-10] MEDS: HEPARIN SOD 5,000 UNIT/0.5 ML VIAL SQ SCH ×2 (08:14→21:02)
[2022-05-10] MEDS: POTASSIUM CHLORIDE / WTR 10 MEQ/100 ML PLCT IV SCH ×4 (10:03→21:31)
[2022-05-10] MEDS: MAGNESIUM SULFATE / D5W 1 GM/100 ML BAG IV SCH ×2 (10:03→12:23)
[2022-05-10] MEDS: LACTATED RINGER'S 1,000 ML IV SCH (12:22)
--- NOTE | 2022-05-10 16:17 | Neurology Progress Note ---
Date of Service May 10, 2022 Assessment & Plan (1) Myasthenia gravis with acute exacerbation: Plan: Suspect myasthenia gravis exacerbation due to COVID. On day 3 of 5 for IVIG today with noticeable improvement so far in bulbar weakness. Would continue to be vigilant about not adding medications that are known to worsen myasthenia. Continue to follow respiratory parameters, though they have always been more concerning than the patient's actual appearance in terms of her breathing. Admission and Anticipated Discharge Date Admission Date: May 08, 2022 Subjective Patient think she is doing better, on swallowing and speaking better. Still with mild headache. Not feeling short of breath. Tolerating IVIG well, third infusion today. Review of Systems Review of Systems: No change Physical Exam Physical Exam: Awake, alert, attentive. Speech is more clear today, and she is talking faster. Ptosis on the left side is less. Less nasal. No trouble swallowing her secretions. Can fully retract lips today Results & Data ([facility]) Vital Signs (Past 12 Hours) Vital Signs Temp Pulse Pulse Resp BP Pulse Ox O2 Del Method 05/10/22 15:52 36.9 C 82 18 150/75 H 96 Room Air 05/10/22 08:00 72 05/10/22 08:00 Nasal Cannula 05/10/22 09:04 36.3 C L 78 18 143/76 H 95 Nasal Cannula O2 Flow Rate 05/10/22 15:52 05/10/22 08:00 05/10/22 08:00 2 05/10/22 09:04 2
--- NOTE | 2022-05-10 16:50 | Hospitalist Progress Note ---
Date of Service May 10, 2022 Assessment & Plan (1) Myasthenia gravis: Plan: with exacerbation - 2nd to #2. at high risk of further decompensation. appreciate neurology consultation. remains on mestinon qid. IVIG x 5 days -- day #3 today. NIF levels modestly worse today. Ptosis looks worse today. CXR is worse today. I spoke with Dr Daniel from the ICU - will move patient to ICU for close observation due to high concern of further respiratory decline, high risk of intubation, etc. defer steroid therapy for #2 to ICU attending. (2) COVID: Plan: COVID-19, just a few days into her illness. remains on 2 L NC O2. day #2 of 5 of Remdesivir. AST/ALT wnl. defer initiation of steroids to ICU attending. ok from neurology to use steroids for asthma/COVID. supportive care, flutter valve, lay on side as much as possible, etc. CRP noted. May need CPAP or HFNC to provide respiratory support. CXR notably worse today - right sided opacities worsening COVID pneumonia vs bacterial superinfection vs atelectasis vs combination of factors. procal, however, wnl. low threshold for IV abx. (3) Asthma with exacerbation: Plan: 2nd to COVID-19 infection. bronchodilators. ?initiation of steroids. supportive care. (4) DVT prophylaxis: Plan: heparin 5000 BID (5) Dysphagia: Plan: appreciate speech consultation 2nd to #1 with exacerbation/flare +/- same or slightly better (6) Chronic hypertension: Plan: cont losartan (7) Candidiasis of mouth and esophagus: Plan: suspected nystatin 5cc qid swish/spit (8) Hypokalemia: Plan: replace IV serial labs replace low mag (9) Hypomagnesemia: Plan: replace IV repeat level late today wnl Plan I spoke with pt's daughter - discussed her mother's status and the move to ICU out of concern of worsening neuromuscular resp failure in setting of COVID/myasthenia questions answered appreciate Dr Daniel's consult appreciate neurology assistance remains full code including intubation Admission and Anticipated Discharge Date Admission Date: May 08, 2022 Subjective patient continues to feel very tired, weak, fatigued - with that said she sat in the chair for a period of time today swallowing is slightly better than yesterday in her opinion she continues with cough, congestion, and white/yellow sputum production she is short of breath when she gets up and moves around tele overnight wnl per respiratory therapy her NIFs today have been --10 to --20 Review of Systems Review of Systems: gen - no fevers or chills cv - no chest pain, no orthopnea pulm - cough is fairly constant; no dyspnea when laying down - only with activity eyes - ptosis - she thinks it's better than previous GI - no nausea/emesis Physical Exam Physical Exam: gen - again looks very tired, fatigued; bronchial cough eyes - b/l ptosis, L>R - looks worse to me today mouth - MMM neck - no JVD heart - RRR,s1,s2, no murmur lungs - worsened rales R base, mild rales L base, poor airation, occasional wheeze abd - soft NT ND BS+ neuro - dysarthric/garbled/marbly speech; strength in arms/legs about 5/5; no facial droop; ptosis as above ext - no edema, pulses 2+ b/l Results & Data Results & Data ([facility]) Vital Signs (Past 12 Hours) Vital Signs Temp Pulse Pulse Resp BP Pulse Ox O2 Del Method 05/10/22 15:52 36.9 C 82 18 150/75 H 96 Room Air 05/10/22 08:00 72 05/10/22 08:00 Nasal Cannula 05/10/22 09:04 36.3 C L 78 18 143/76 H 95 Nasal Cannula O2 Flow Rate 05/10/22 15:52 05/10/22 08:00 05/10/22 08:00 2 05/10/22 09:04 2 Laboratory Results Laboratory Results - last 24 hr 05/10/22 05/10/22 05/10/22 07:23 07:23 17:46 WBC 4.06 L RBC 4.32 Hgb 12.7 Hct 37.9 MCV 87.7 MCH 29.4 MCHC 33.5 RDW Std Deviation 42.5 RDW Coeff of Rowan 13.2 Plt Count 188 MPV 10.3 Immature Gran % (Auto) 0.2 Neut % (Auto) 74.2 Lymph % (Auto) 16.0 [place] % (Auto) 8.6 Eos % (Auto) 0.5 Baso % (Auto) 0.5 Neut # (Auto) 3.01 Lymph # (Auto) 0.65 L [place] # (Auto) 0.35 Eos # (Auto) 0.02 Baso # (Auto) 0.02 Immature Gran # (Auto) 0.01 VBG pH VBG pCO2 VBG pO2 VBG HCO3 VBG O2 Saturation VBG Base Excess Sodium 136 Potassium 3.3 L 3.4 L Chloride 106 Carbon Dioxide 28 Anion Gap 2 L BUN 8 Creatinine 0.52 L Est Cr Clr Drug Dosing 69.0 Est GFR ( Amer) 102.4 Est GFR (Non-Af Amer) 88.4 BUN/Creatinine Ratio 15.4 Glucose 82 Calcium 8.0 L Phosphorus 2.5 Magnesium 1.6 L 2.2 Total Bilirubin 0.3 AST 14 ALT 7 Alkaline Phosphatase 82 C-Reactive Protein 4.53 H Total Protein 7.2 Albumin 2.8 L Globulin 4.4 H Albumin/Globulin Ratio 0.6 L Procalcitonin 05/10/22 05/10/22 17:46 17:46 WBC RBC Hgb Hct MCV MCH MCHC RDW Std Deviation RDW Coeff of Rowan Plt Count MPV Immature Gran % (Auto) Neut % (Auto) Lymph % (Auto) Amite % (Auto) Eos % (Auto) Baso % (Auto) Neut # (Auto) Lymph # (Auto) Amite # (Auto) Eos # (Auto) Baso # (Auto) Immature Gran # (Auto) VBG pH 7.43 H VBG pCO2 43 VBG pO2 65 VBG HCO3 29 VBG O2 Saturation 91.4 VBG Base Excess 3.7 Sodium Potassium Chloride Carbon Dioxide Anion Gap BUN Creatinine Est Cr Clr Drug Dosing Est GFR ( Amer) Est GFR (Non-Af Amer) BUN/Creatinine Ratio Glucose Calcium Phosphorus Magnesium Total Bilirubin AST ALT Alkaline Phosphatase C-Reactive Protein Total Protein Albumin Globulin Albumin/Globulin Ratio Procalcitonin 0.07 Diagnostic Findings Chest X-Ray 05/10/22 16:35 XR chest 1V portable HISTORY: 81 years-old Female myasthenia gravis, COVID, eval pneumonia acute shortness of breath COMPARISON: Chest radiograph 05/08/2022 TECHNIQUE: AP view of the chest FINDINGS: Cardiomegaly. Large hiatal hernia. Unchanged positioning of the left subclavian [id number] catheter. Small pleural effusions with right basilar right midlung consolidation, new from prior. Pulmonary vascular congestion. Bones appear grossly intact. IMPRESSION: 1. Cardiomegaly with pulmonary vascular congestion. 2. New small pleural effusions with right midlung and right basilar consolidation suggestive of atelectasis versus pneumonia. 3. Hiatal hernia. ACT 112: Negative or not required by law. The above report was generated using voice recognition software. It may contain grammatical, syntax or spelling errors. Electronically signed by: Cl Rangel M.D. 05/10/2022 5:31 PM PG Care Time/CCT Total # of Minutes Spent Total Time Spent with Patient: Total time spent is greater than 50% in coordination of care (as documented) at patient's floor/unit and/or counseling patient: Coding Level of Care Code 95537 Subseq Hosp Care Lvl 3 Diagnoses Myasthenia gravis G70.00 COVID U07.1 Asthma with exacerbation J45.901 DVT prophylaxis Z29.9 Dysphagia R13.10 Chronic hypertension I10 Candidiasis of mouth and esophagus B37.81; B37.0 Hypokalemia E87.6 Hypomagnesemia E83.42
[2022-05-10] MEDS: ALBUT/IPRATROP 3MG/0.5MG NEB 3 ML VIAL NEB SCH ×2 (17:14→17:59)
--- NOTE | 2022-05-10 17:27 | Critical Care Consultation ---
Date of Consultation May 10, 2022 Assessment & Plan (1) Myasthenia gravis with acute exacerbation: Reason Critically Ill: 81-year-old female in acute myasthenic crisis PLAN: Neuro: Myasthenia gravis -Continue with IVIG -Starting steroids per neurology's recommendation -Patient agreeable with intubation mechanical ventilation for respiratory insufficiency -Continue pyridostigmine -Continue Robinul Resp: COVID-19 infection -Chest x-ray reviewed, I am concerned for mucoid impaction of the bronchi -On remdesivir -Continue aggressive chest physiotherapy -Negative inspiratory force every 8 hours CV: Chronic hypertension -Continue current home regimen Fluids/Renal: Mild hypokalemia -IV replacement Mild hypomagnesemia -Will consider enteral replacement -Parenteral replacement relatively contraindicated myasthenic crisis ID: COVID-19 infection -No indication for antibiotics at this time GI/Nutrition: N.p.o. -Consideration given for nutritional support however I feel the patient would benefit most from high flow nasal cannula therapy to hopefully decrease work of breathing Heme: DVT prophylaxis: Heparin 5000 units twice daily, convert to Lovenox for easier administration Endocrine: ICU hyperglycemia protocol Vascular access: Port-A-Cath in place Code Status: Full code Disposition: Transfer to ICU for noninvasive therapies and close monitoring for impending respiratory failure (2) Chronic hypertension: (3) COVID-19: (4) Respiratory failure: Supervising Physician Co-Signing Physician Notes I have personally spent 60 minutes of critical care time in the direct management of this patient. This is a life/limb threatening event. This includes time spent evaluating patient, direct bedside care, chart review, placing orders, interpretation of diagnostic studies, discussion with consultants, patient, and/or family members regarding treatment decisions, as well as other required patient management activities. This time is exclusive of all separately billable procedures, and teaching time and separate from and in addition to any other critical care service time. History of Present Illness Reason for Consultation: Respiratory insufficiency in the setting of myasthenia crisis secondary to COVID-19 infection Attending Physician: Shawn Washington History of Present Illness Patient is an 81-year-old female who has a significant past medical history for myasthenia gravis who presented with worsening symptoms of COVID-19 infection and difficulty breathing. She was recently started on a 400 mg/kg IVIG 5-day dosing regimen. Steroids were not started at this time. Patient has been vaccinated and boosted against COVID-19. They have been trending negative inspiratory force values. The patient feels that she is getting better in the past 24 hours however she is not able to cough anything up. She is able to move in bed and has been able to sit upright in a chair. When I initially asked her if she would be agreeable with intubation in event of respiratory insufficiency she declined. However I discussed risks and benefits with the alternative being a respiratory arrest and passing away. Also reiterated generally speaking myasthenia gravis patients 80% or able to be extubated within 1 to 2 weeks. If there is prolonged need for mechanical ventilation she may require a tracheostomy which would hopefully be temporary. At this time she does not appear to have significant hypoxia. In discussion with nursing she is eating approximately 50% of her meals. Allergies Allergy/AdvReac Type Severity Reaction Status Date / Time clindamycin Allergy Intermediate Rash Verified 04/13/22 09:01 Penicillins Allergy Intermediate Rash Verified 04/13/22 09:01 diazepam [From Valium] AdvReac Severe Vomiting Verified 04/13/22 09:01 mometasone furoate AdvReac Intermediate Vomiting Verified 04/13/22 09:01 [From Nasonex] Home Medications Medication Instructions Recorded Confirmed Type cyclosporine 0.05 % eye drops in a 1 drp ophthalmic (eye) Q12H 01/26/22 05/08/22 History dropperette fluticasone fur. 100 mcg-umeclid 1 inh inhalation DAILY 01/26/22 05/08/22 His tory 62.5 mcg-vilant 25 mcg inhalat.powder (Trelegy Ellipta) losartan 100 mg tablet (Cozaar) 100 mg PO DAILY 01/26/22 05/08/22 History mirabegron 50 mg tablet,extended 50 mg PO DAILY 01/26/22 05/08/22 History release 24 hr (Myrbetriq) montelukast 10 mg tablet 10 mg PO DAILY 01/26/22 05/08/22 History (Singulair) pyridostigmine bromide 60 mg 90 mg PO QID 30 days #180 tabs 01/26/22 05/08/22 Rx tablet (Mestinon) Gammagard Liquid 10 % injection 30 g IV Q4WK 28 days #300 mL 02/09/22 05/08/22 Rx solution (immun glob G(IgG)-gly-IgA ov50) folic acid 1 mg tablet 1 mg PO DAILY 02/16/22 05/08/22 History glycopyrrolate 1 mg tablet 1 mg PO DAILY #30 tabs 04/17/22 05/08/22 Rx Patient History Medical History Fibromyalgia History of asthma Hx of myasthenia gravis Hx of primary hypertension Osteoarthritis Port-A-Cath in place Surgical History H/O blepharoplasty june eyes History of tonsillectomy and adenoidectomy Hx of hysterectomy Family History Father Heart valve replaced Cancer of esophagus Mother Diabetes Social History Smoking Status: Never smoker Second Hand Exposure: No; Do You Dip or Chew Tobacco: No; Hx Alcohol Use: Yes Alcohol type: beer and wine Alcohol Intake Frequency: Monthly or Less Hx Substance Use: No Preferred Language: Persian Communication Ability: Effective Communication Ability Comment: sppech low volume and needs more effort Visual Impairment: Limited Hearing Ability: Use of Hearing Aid [employer]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 Physical Exam Physical Exam: General: Alert. nontoxic. Skin: Warm, dry, Head: Atraumatic Ears, nose, mouth and throat: airway patent Cardiovascular: Normal peripheral perfusion Respiratory: no respiratory distress, mild tachypnea Gastrointestinal: Non distended Musculoskeletal: No deformity Results & Data Results & Data ([facility]) Vital Signs (Past 12 Hours) Vital Signs Temp Pulse Pulse Resp BP Pulse Ox O2 Del Method 05/10/22 15:52 36.9 C 82 18 150/75 H 96 Room Air 05/10/22 08:00 72 05/10/22 08:00 Nasal Cannula 05/10/22 09:04 36.3 C L 78 18 143/76 H 95 Nasal Cannula O2 Flow Rate 05/10/22 15:52 05/10/22 08:00 05/10/22 08:00 2 05/10/22 09:04 2 Critical Care Results & Data Vital Signs (Past 12 Hours) Vital Signs Temp Pulse Pulse Resp BP Pulse Ox O2 Del Method 05/10/22 17:14 75 22 95 Nasal Cannula 05/10/22 15:52 36.9 C 82 18 150/75 H 96 Room Air 05/10/22 08:00 72 05/10/22 08:00 Nasal Cannula 05/10/22 09:04 36.3 C L 78 18 143/76 H 95 Nasal Cannula O2 Flow Rate 05/10/22 17:14 2 05/10/22 15:52 05/10/22 08:00 05/10/22 08:00 2 05/10/22 09:04 2 Lab & Micro Results (Past 24 Hours) RBC 4.32 M/uL (3.93-5.22) 05/10/22 WBC 4.06 K/ul (4.8-10.8) L 05/10/22 Hgb 12.7 g/dl (12.0-16.0) 05/10/22 Hct 37.9 % (34.1-44.9) 05/10/22 MCV 87.7 fL (80.0-100.0) 05/10/22 MCH 29.4 pg (25.0-34.0) 05/10/22 MCHC 33.5 g/dL (32.0-36.0) 05/10/22 RDW Standard Deviation 42.5 fL (36.4-46.3) 05/10/22 RDW Coefficient of Variation 13.2 % (11.5-14.5) 05/10/22 Plt Count 188 K/uL (130-400) 05/10/22 MPV 10.3 fL (9.4-12.3) 05/10/22 Neutrophils (%) (Auto) 74.2 % 05/10/22 Lymphocytes (%) (Auto) 16.0 % 05/10/22 Monocytes # (Auto) 0.35 K/uL (0.24-0.82) 05/10/22 Eosinophils # (Auto) 0.02 K/uL (0-0.50) 05/10/22 Immature Granulocyte % (Auto) 0.2 % 05/10/22 Neutrophils # (Auto) 3.01 K/uL (1.4-6.5) 05/10/22 Lymphocytes # (Auto) 0.65 K/uL (1.2-3.4) L 05/10/22 Monocytes # (Auto) 0.35 K/uL (0.24-0.82) 05/10/22 Eosinophils # (Auto) 0.02 K/uL (0-0.50) 05/10/22 Basophils # (Auto) 0.02 K/uL (0-0.2) 05/10/22 Immature Granulocyte # (Auto) 0.01 K/uL (0.00-0.02) 2 Na 136 mmol/L (136-145) 05/10/22 K 3.3 mmol/L (3.5-5.1) L 05/10/22 Cl 106 mmol/L (98-107) 05/10/22 CO2 28 mmol/L (21-32) 05/10/22 Anion Gap 2 (3-11) L 05/10/22 BUN 8 mg/dl (6-23) 05/10/22 Creatinine 0.52 mg/dl (0.6-1.2) L 05/10/22 Estimated GFR ( Amer) 102.4 ml/min 05/10/22 Estimated GFR (Non-Af Amer) 88.4 ml/min 05/10/22 BUN/Creatinine Ratio 15.4 (10-20) 05/10/22 Glu 82 mg/dl (70-99(Fasting)) 05/10/22 Ca 8.0 mg/dl (8.5-10.1) L 05/10/22 Phosphorus Level 2.5 mg/dl (2.5-4.9) 05/10/22 Total Bilirubin 0.3 mg/dl (0.2-1.0) 05/10/22 AST 14 U/L (13-39) 05/10/22 ALT 7 U/L (7-52) 05/10/22 Alkaline Phosphatase 82 U/L (34-104) 05/10/22 TP 7.2 gm/dl (6.0-8.3) 05/10/22 Albumin 2.8 gm/dl (3.4-5.0) L 05/10/22 Globulin 4.4 gm/dl (2.5-4.0) H 05/10/22 Albumin/Globulin Ratio 0.6 (0.9-2) L 05/10/22 Mg 1.6 mg/dl (1.7-2.4) L 05/10/22 07:23 Calcium Level 8.0 mg/dl (8.5-10.1) L 05/10/22 07:23 I & O Totals 24 Hours 05/09/22 05/10/22 05/11/22 06:59 06:59 06:59 Intake Total 512.667 / 231.548 1393.333 / 2477.333 1647.333 / 1647.333 Output Total 1100 / 1100 Balance 512.667 / 680.068 5015.333 / 2475.333 547.333 / 547.333 Cumulative 05/08/22 10:40 thru 05/10/22 16:54 Intake Total 4637.333 Output Total 1102 Balance 3535.333 RT Ventilator Mngmt (Last Documented) Ventilator Ordered Settings Respiratory Rate 22 05/10/22 17:14 Ventilator - PT Measurements Respiratory Rate 22 Coding Level of Care Code Critical Care 1st 30-74 mins Diagnoses Myasthenia gravis with acute exacerbation G70.01 Chronic hypertension I10 COVID-19 U07.1 Respiratory failure J96.90
--- NOTE | 2022-05-10 17:32 | XRay Report ---
XR chest 1V portable HISTORY: 81 years-old Female myasthenia gravis, COVID, eval pneumonia acute shortness of breath COMPARISON: Chest radiograph 05/08/2022 TECHNIQUE: AP view of the chest FINDINGS: Cardiomegaly. Large hiatal hernia. Unchanged positioning of the left subclavian Iuglps-v-Vivb cathete r. Small pleural effusions with right basilar right midlung consolidation, new from prior. Pulmonary vascular congestion. Bones appear grossly intact. IMPRESSION: 1. Cardiomegaly with pulmonary vascular congestion. 2. New small pleural effusions with right midlung and right basilar consolidation suggestive of atele ctasis versus pneumonia. 3. Hiatal hernia. ACT 112: Negative or not required by law. The above report was generated using voice recognition software. It may contain grammatical, syntax o r spelling errors. Electronically signed by: Cl Rangel M.D. 05/10/2022 5:31 PM
[2022-05-10 18:20] LABS: Base Excess VBG 3.7 mEq/L; HCO3 VBG 29 mmol/L; Oxygen Saturation VBG 91.4 %; PCO2 VBG 43 mmHg (38-50); PO2 VBG 65 mmHg; pH VBG 7.43 (7.36-7.41)
[2022-05-10 18:41] LABS: Magnesium 2.2 mg/dl (1.7-2.4); Potassium 3.4 mmol/L (3.5-5.1)
[2022-05-10] MEDS ORDERED: methylPREDNISolone 250 MG in DEXTROSE 5% 100 ML IV SCH (19:00)
[2022-05-10] MEDS: REMDESIVIR 100 MG in SODIUM CHLORIDE 0.9% 230 ML IV SCH (19:32)
[2022-05-10] MEDS ORDERED: GLUCAGON FOR INJ 1 MG VIAL SQ PRN (21:48)
[2022-05-10] MEDS ORDERED: GLUCOSE 10 TAB/TUBE PO PRN (21:48)
[2022-05-10] MEDS ORDERED: GLUCOSE 40% GEL 15 GM TUBE PO PRN (21:48)
[2022-05-10] MEDS ORDERED: CARBOHYDRATES FOR HYPOGLYCEMIA PO PRN (21:48)
[2022-05-10] MEDS ORDERED: DEXTROSE 50% 50 ML SYRINGE IV PRN (21:48)
[2022-05-10] MEDS: diphenhydrAMINE 50 MG/ML VIAL IV SCH (21:53)
[2022-05-10] MEDS: ACETAMINOPHEN 500 MG TAB PO SCH (21:53)
[2022-05-10] MEDS: Octagam 10% IVIG 5 gram bottle IV SCH (23:18)
[2022-05-11] MEDS: IMMUN GLOBG(IGG)/MALT/IGA OV50 200 ML IV SCH ×2 (00:04→23:05)
[2022-05-11] MEDS: methylPREDNISolone 250 MG in DEXTROSE 5% 100 ML IV SCH ×2 (02:09→06:44)
[2022-05-11 05:16] LABS: Basophils # (auto) 0.01 K/uL (0-0.2); Basophils % (auto) 0.3 %; Eosinophils # (auto) 0.02 K/uL (0-0.50); Eosinophils % (auto) 0.6 %; Hematocrit (blood only) 39.2 % (34.1-44.9); Lymphocytes # (auto) 0.66 K/uL (1.2-3.4); Lymphocytes % (auto) 21.4 %; Mean Corpuscular Hemoglobin 29.3 pg (25.0-34.0); Mean Corpuscular Hgb Conc 33.2 g/dL (32.0-36.0); Mean Corpuscular Volume 88.3 fL (80.0-100.0); Mean Platelet Volume 10.5 fL (9.4-12.3); Monocytes % (auto) 3.2 %; Neutrophils % (auto) 74.5 %; Platelet Count 202 K/uL (130-400); RDW Coefficient of Variation 13.2 % (11.5-14.5); Red Blood Count 4.44 M/uL (3.93-5.22); White Blood Count 3.09 K/ul (4.8-10.8)
[2022-05-11 05:39] LABS: BUN Creatinine Ratio 15.7 (10-20); Calcium 8.1 mg/dl (8.5-10.1); Creatinine Clr Calc Pharmacy 70.3 ml/min; Est GFR (African American) 103.1 ml/min; Est GFR (Non-African American) 88.9 ml/min; Potassium 3.7 mmol/L (3.5-5.1)
[2022-05-11] MEDS: ALBUT/IPRATROP 3MG/0.5MG NEB 3 ML VIAL NEB SCH (07:46)
[2022-05-11] MEDS: FLUTICASONE FUROATE 100MCG 14 PUFFS/INHALER INH SCH (08:17)
[2022-05-11] MEDS: UMECLIDINIUM/VILANTEROL 62.5/25MCG 7 PUFFS/INHALER INH SCH (08:17)
[2022-05-11] MEDS: pyRIDostigmine bromide 60 MG TAB PO SCH ×4 (08:17→21:19)
[2022-05-11] MEDS: NYSTATIN SUSP 500,000 U/5 ML UDC PO SCH ×4 (08:17→21:19)
[2022-05-11] MEDS: guaiFENesin 600 MG TABCR PO SCH ×2 (08:18→21:19)
[2022-05-11] MEDS: HEPARIN SOD 5,000 UNIT/0.5 ML VIAL SQ SCH (08:18)
[2022-05-11] MEDS: FOLIC ACID 1 MG TAB PO SCH (08:19)
[2022-05-11] MEDS: MIRABEGRON ER 25 MG TAB PO SCH (08:19)
[2022-05-11] MEDS: MONTELUKAST SODIUM 10 MG TABLET PO SCH (08:19)
[2022-05-11] MEDS: GLYCOPYRROLATE 1 MG TAB PO SCH (08:19)
[2022-05-11] MEDS: LOSARTAN POTASSIUM 50 MG TAB PO SCH (08:20)
[2022-05-11] MEDS: LACTATED RINGER'S 1,000 ML IV SCH ×2 (08:43→21:19)
--- NOTE | 2022-05-11 08:59 | Critical Care Progress Note ---
Date of Service May 11, 2022 Assessment & Plan (1) Myasthenia gravis with acute exacerbation: Plan: Reason Critically Ill: 81-year-old female in acute myasthenic crisis PLAN: Neuro: Myasthenia gravis -Continue with IVIG -Discussed steroids with neurology: Decreased to 20 mg prednisone daily -Patient agreeable with intubation mechanical ventilation for respiratory insufficiency -Continue pyridostigmine -Continue Robinul Resp: COVID-19 infection -Chest x-ray reviewed, I am concerned for mucoid impaction of the bronchi -On remdesivir -Continue aggressive chest physiotherapy -Negative inspiratory force every 8 hours CV: Chronic hypertension -Continue current home regimen Fluids/Renal: Mild hypokalemia: Resolved Mild hypomagnesemia -Will consider enteral replacement -Parenteral replacement relatively contraindicated myasthenic crisis ID: COVID-19 infection -No indication for antibiotics at this time GI/Nutrition: Patient feels stronger today will allow minced and moist use to assist with swallowing and Ensure supplementation -Consideration of calorie counts Heme: DVT prophylaxis: Heparin 5000 units twice daily, convert to Lovenox for easier administration Endocrine: ICU hyperglycemia protocol Vascular access: Port-A-Cath in place Code Status: Full code Disposition: ICU for close respiratory status monitoring (2) Chronic hypertension: (3) COVID-19: (4) Respiratory failure: Admission and Anticipated Discharge Date Admission Date: May 08, 2022 Supervising Physician Co-Signing Physician Notes I have personally spent 35 minutes of critical care time in the direct management of this patient. This is a life/limb threatening event. This includes time spent evaluating patient, direct bedside care, chart review, placing orders, interpretation of diagnostic studies, discussion with consultants, patient, and/or family members regarding treatment decisions, as well as other required patient management activities. This time is exclusive of all separately billable procedures, and teaching time and separate from and in addition to any other critical care service time. Physical Exam Physical Exam: General: Alert. nontoxic. Skin: Warm, dry, Head: Atraumatic Ears, nose, mouth and throat: airway patent Cardiovascular: Normal peripheral perfusion Respiratory: no respiratory distress, mild tachypnea Gastrointestinal: Non distended Musculoskeletal: No deformity Results & Data Results & Data ([facility]) Vital Signs (Past 12 Hours) Vital Signs Temp Pulse Pulse Resp BP Pulse Ox O2 Del Method 05/11/22 08:39 136/113 H 05/11/22 08:39 119 H 13 96 05/11/22 08:31 92 H 19 96 05/11/22 08:31 132/71 05/11/22 08:15 132/75 05/11/22 08:15 91 H 19 95 05/11/22 08:01 80 23 94 05/11/22 08:01 140/90 05/11/22 08:00 85 16 95 05/11/22 07:45 74 18 96 05/11/22 07:45 146/84 H 05/11/22 07:31 146/78 H 05/11/22 07:31 73 21 96 05/11/22 07:15 132/77 05/11/22 07:15 70 28 H 96 05/11/22 07:00 68 26 H 95 05/11/22 07:00 133/72 05/11/22 08:00 36.6 C 05/11/22 08:02 70 20 96 Nasal Cannula 05/11/22 07:53 Nasal Cannula 05/11/22 07:50 59 L 05/11/22 03:00 36.9 C 05/11/22 02:45 36.8 C 05/11/22 02:30 37.0 C 05/11/22 02:15 37.0 C 05/11/22 02:00 37.0 C 05/11/22 01:45 37.0 C 05/11/22 01:30 37.0 C 05/11/22 01:15 36.9 C 05/11/22 01:00 36.9 C 05/11/22 00:30 36.9 C 05/11/22 00:15 36.9 C 05/11/22 00:00 36.8 C 05/10/22 23:45 36.8 C 05/10/22 23:30 36.8 C 05/10/22 23:15 36.9 C 05/10/22 23:00 36.9 C 05/11/22 02:45 127/63 05/11/22 02:45 59 L 22 97 05/11/22 02:30 57 L 22 98 05/11/22 02:30 133/64 05/11/22 02:15 145/69 H 05/11/22 02:15 68 22 98 05/11/22 02:00 85 22 98 05/11/22 02:00 152/77 H 05/11/22 01:45 156/75 H 05/11/22 01:45 63 24 98 05/11/22 01:30 66 19 97 05/11/22 01:30 149/73 H 05/11/22 01:15 137/64 05/11/22 01:15 62 23 98 05/11/22 01:00 64 23 97 05/11/22 01:00 137/72 05/11/22 00:45 133/66 05/11/22 00:45 59 L 15 97 05/11/22 00:30 135/67 05/11/22 00:30 62 20 97 05/11/22 00:15 72 20 97 05/11/22 00:15 143/71 H 05/11/22 00:00 68 15 99 05/11/22 00:00 90/60 L 05/10/22 23:45 63 21 97 05/10/22 23:45 133/71 05/10/22 23:30 64 29 H 98 05/10/22 23:30 161/72 H 05/10/22 23:21 68 18 98 05/10/22 23:21 135/72 05/10/22 23:00 63 23 98 05/10/22 23:00 140/73 05/10/22 22:00 132/78 05/11/22 00:00 61 05/10/22 22:10 Nasal Cannula 05/10/22 22:00 64 23 132/78 98 05/10/22 21:01 75 17 97 05/10/22 21:00 71 21 168/87 H 96 Nasal Cannula O2 Flow Rate 05/11/22 08:39 05/11/22 08:39 05/11/22 08:31 05/11/22 08:31 05/11/22 08:15 05/11/22 08:15 05/11/22 08:01 05/11/22 08:01 05/11/22 08:00 05/11/22 07:45 05/11/22 07:45 05/11/22 07:31 05/11/22 07:31 05/11/22 07:15 05/11/22 07:15 05/11/22 07:00 05/11/22 07:00 05/11/22 08:00 05/11/22 08:02 2 05/11/22 07:53 3 05/11/22 07:50 05/11/22 03:00 05/11/22 02:45 05/11/22 02:30 05/11/22 02:15 05/11/22 02:00 05/11/22 01:45 05/11/22 01:30 05/11/22 01:15 05/11/22 01:00 05/11/22 00:30 05/11/22 00:15 05/11/22 00:00 05/10/22 23:45 05/10/22 23:30 05/10/22 23:15 05/10/22 23:00 05/11/22 02:45 05/11/22 02:45 05/11/22 02:30 05/11/22 02:30 05/11/22 02:15 05/11/22 02:15 05/11/22 02:00 05/11/22 02:00 05/11/22 01:45 05/11/22 01:45 05/11/22 01:30 05/11/22 01:30 05/11/22 01:15 05/11/22 01:15 05/11/22 01:00 05/11/22 01:00 05/11/22 00:45 05/11/22 00:45 05/11/22 00:30 05/11/22 00:30 05/11/22 00:15 05/11/22 00:15 05/11/22 00:00 05/11/22 00:00 05/10/22 23:45 05/10/22 23:45 05/10/22 23:30 05/10/22 23:30 05/10/22 23:21 05/10/22 23:21 05/10/22 23:00 05/10/22 23:00 05/10/22 22:00 05/11/22 00:00 05/10/22 22:10 3 05/10/22 22:00 3 05/10/22 21:01 05/10/22 21:00 3 Critical Care Results & Data Vital Signs (Past 12 Hours) Vital Signs Temp Pulse Pulse Resp BP Pulse Ox O2 Del Method 05/11/22 08:39 136/113 H 05/11/22 08:39 119 H 13 96 05/11/22 08:31 92 H 19 96 05/11/22 08:31 132/71 05/11/22 08:15 132/75 05/11/22 08:15 91 H 19 95 05/11/22 08:01 80 23 94 05/11/22 08:01 140/90 05/11/22 08:00 85 16 95 05/11/22 07:45 74 18 96 05/11/22 07:45 146/84 H 05/11/22 07:31 146/78 H 05/11/22 07:31 73 21 96 05/11/22 07:15 132/77 05/11/22 07:15 70 28 H 96 05/11/22 07:00 68 26 H 95 05/11/22 07:00 133/72 05/11/22 08:00 36.6 C 05/11/22 08:02 70 20 96 Nasal Cannula 05/11/22 07:53 Nasal Cannula 05/11/22 07:50 59 L 05/11/22 03:00 36.9 C 05/11/22 02:45 36.8 C 05/11/22 02:30 37.0 C 05/11/22 02:15 37.0 C 05/11/22 02:00 37.0 C 05/11/22 01:45 37.0 C 05/11/22 01:30 37.0 C 05/11/22 01:15 36.9 C 05/11/22 01:00 36.9 C 05/11/22 00:30 36.9 C 05/11/22 00:15 36.9 C 05/11/22 00:00 36.8 C 05/10/22 23:45 36.8 C 05/10/22 23:30 36.8 C 05/10/22 23:15 36.9 C 05/10/22 23:00 36.9 C 05/11/22 02:45 127/63 05/11/22 02:45 59 L 22 97 05/11/22 02:30 57 L 22 98 05/11/22 02:30 133/64 05/11/22 02:15 145/69 H 05/11/22 02:15 68 22 98 05/11/22 02:00 85 22 98 05/11/22 02:00 152/77 H 05/11/22 01:45 156/75 H 05/11/22 01:45 63 24 98 05/11/22 01:30 66 19 97 05/11/22 01:30 149/73 H 05/11/22 01:15 137/64 05/11/22 01:15 62 23 98 05/11/22 01:00 64 23 97 05/11/22 01:00 137/72 05/11/22 00:45 133/66 05/11/22 00:45 59 L 15 97 05/11/22 00:30 135/67 05/11/22 00:30 62 20 97 05/11/22 00:15 72 20 97 05/11/22 00:15 143/71 H 05/11/22 00:00 68 15 99 05/11/22 00:00 90/60 L 05/10/22 23:45 63 21 97 05/10/22 23:45 133/71 05/10/22 23:30 64 29 H 98 05/10/22 23:30 161/72 H 05/10/22 23:21 68 18 98 05/10/22 23:21 135/72 05/10/22 23:00 63 23 98 05/10/22 23:00 140/73 05/10/22 22:00 132/78 05/11/22 00:00 61 05/10/22 22:10 Nasal Cannula 05/10/22 22:00 64 23 132/78 98 05/10/22 21:01 75 17 97 05/10/22 21:00 71 21 168/87 H 96 Nasal Cannula O2 Flow Rate 05/11/22 08:39 05/11/22 08:39 05/11/22 08:31 05/11/22 08:31 05/11/22 08:15 05/11/22 08:15 05/11/22 08:01 05/11/22 08:01 05/11/22 08:00 05/11/22 07:45 05/11/22 07:45 05/11/22 07:31 05/11/22 07:31 05/11/22 07:15 05/11/22 07:15 05/11/22 07:00 05/11/22 07:00 05/11/22 08:00 05/11/22 08:02 2 05/11/22 07:53 3 05/11/22 07:50 05/11/22 03:00 05/11/22 02:45 05/11/22 02:30 05/11/22 02:15 05/11/22 02:00 05/11/22 01:45 05/11/22 01:30 05/11/22 01:15 05/11/22 01:00 05/11/22 00:30 05/11/22 00:15 05/11/22 00:00 05/10/22 23:45 05/10/22 23:30 05/10/22 23:15 05/10/22 23:00 05/11/22 02:45 05/11/22 02:45 05/11/22 02:30 05/11/22 02:30 05/11/22 02:15 05/11/22 02:15 05/11/22 02:00 05/11/22 02:00 05/11/22 01:45 05/11/22 01:45 05/11/22 01:30 05/11/22 01:30 05/11/22 01:15 05/11/22 01:15 05/11/22 01:00 05/11/22 01:00 05/11/22 00:45 05/11/22 00:45 05/11/22 00:30 05/11/22 00:30 05/11/22 00:15 05/11/22 00:15 05/11/22 00:00 05/11/22 00:00 05/10/22 23:45 05/10/22 23:45 05/10/22 23:30 05/10/22 23:30 05/10/22 23:21 05/10/22 23:21 05/10/22 23:00 05/10/22 23:00 05/10/22 22:00 05/11/22 00:00 05/10/22 22:10 3 05/10/22 22:00 3 05/10/22 21:01 05/10/22 21:00 3 Lab & Micro Results (Past 24 Hours) RBC 4.16 M/uL (3.93-5.22) 05/12/22 WBC 5.70 K/ul (4.8-10.8) 05/12/22 Hgb 12.2 g/dl (12.0-16.0) 05/12/22 Hct 36.5 % (34.1-44.9) 05/12/22 MCV 87.7 fL (80.0-100.0) 05/12/22 MCH 29.3 pg (25.0-34.0) 05/12/22 MCHC 33.4 g/dL (32.0-36.0) 05/12/22 RDW Standard Deviation 42.3 fL (36.4-46.3) 05/12/22 RDW Coefficient of Variation 13.1 % (11.5-14.5) 05/12/22 Plt Count 192 K/uL (130-400) 05/12/22 MPV 10.2 fL (9.4-12.3) 05/12/22 Neutrophils (%) (Auto) 83.1 % 05/12/22 Lymphocytes (%) (Auto) 11.6 % 05/12/22 Monocytes # (Auto) 0.28 K/uL (0.24-0.82) 05/12/22 Eosinophils # (Auto) 0.00 K/uL (0-0.50) 05/12/22 Immature Granulocyte % (Auto) 0.4 % 05/12/22 Neutrophils # (Auto) 4.74 K/uL (1.4-6.5) 05/12/22 Lymphocytes # (Auto) 0.66 K/uL (1.2-3.4) L 05/12/22 Monocytes # (Auto) 0.28 K/uL (0.24-0.82) 05/12/22 Eosinophils # (Auto) 0.00 K/uL (0-0.50) 05/12/22 Basophils # (Auto) 0.00 K/uL (0-0.2) 05/12/22 Immature Granulocyte # (Auto) 0.02 K/uL (0.00-0.02) 2 2 Na 136 mmol/L (136-145) 05/12/22 K 4.1 mmol/L (3.5-5.1) 05/12/22 Cl 104 mmol/L (98-107) 05/12/22 CO2 31 mmol/L (21-32) 05/12/22 Anion Gap 1 (3-11) L 05/12/22 BUN 18 mg/dl (6-23) 05/12/22 Creatinine 0.64 mg/dl (0.6-1.2) 05/12/22 Estimated GFR ( Amer) 95.6 ml/min 05/12/22 Estimated GFR (Non-Af Amer) 82.5 ml/min 05/12/22 BUN/Creatinine Ratio 28.1 (10-20) H 05/12/22 Glu 140 mg/dl (70-99(Fasting)) H 05/12/22 Ca 8.1 mg/dl (8.5-10.1) L 05/12/22 Phosphorus Level 3.4 mg/dl (2.5-4.9) 05/12/22 Mg 1.8 mg/dl (1.7-2.4) 05/12/22 05:08 Calcium Level 8.1 mg/dl (8.5-10.1) L 05/12/22 05:08 Diagnostic Findings (Past 24 Hours) Chest X-Ray 05/10/22 16:35 XR chest 1V portable HISTORY: 81 years-old Female myasthenia gravis, COVID, eval pneumonia acute shortness of breath COMPARISON: Chest radiograph 05/08/2022 TECHNIQUE: AP view of the chest FINDINGS: Cardiomegaly. Large hiatal hernia. Unchanged positioning of the left subclavian Ltdjga-p-Xuzg catheter. Small pleural effusions with right basilar right midlung consolidation, new from prior. Pulmonary vascular congestion. Bones appear grossly intact. IMPRESSION: 1. Cardiomegaly with pulmonary vascular congestion. 2. New small pleural effusions with right midlung and right basilar consolidation suggestive of atelectasis versus pneumonia. 3. Hiatal hernia. ACT 112: Negative or not required by law. The above report was generated using voice recognition software. It may contain grammatical, syntax or spelling errors. Electronically signed by: Cl Rangel M.D. 05/10/2022 5:31 PM I & O Totals 24 Hours 05/10/22 05/11/22 05/12/22 06:59 06:59 06:59 Intake Total 7613.306 / 8720.333 2347.333 / 2347.333 Output Total 1924 / 1924 Balance 2475.333 / 2475.333 422.333 / 422.333 Cumulative 05/08/22 10:40 thru 05/11/22 06:00 Intake Total 5337.333 Output Total 1926 Balance 3410.333 RT Ventilator Mngmt (Last Documented) Ventilator Ordered Settings Respiratory Rate 13 05/11/22 08:39 Ventilator - PT Measurements Respiratory Rate 13 Coding Level of Care Code Critical Care 1st 30-74 mins Diagnoses Myasthenia gravis with acute exacerbation G70.01 Chronic hypertension I10 COVID-19 U07.1 Respiratory failure J96.90
--- NOTE | 2022-05-11 09:23 | Neurology Progress Note ---
Date of Service May 11, 2022 Assessment & Plan (1) Myasthenia gravis with acute exacerbation: Plan: Myasthenia gravis flare, likely due to underlying COVID. Patient in the past though has had myasthenia symptoms develop 3 to 4 weeks after the prior IVIG infusion. She then responded to subsequent IVIG infusion and came back to baseline. Since coming into the hospital, she reports significant improvement in her myasthenia symptoms, and her neurologic exam has improved. Previously she had declined to be on steroid maintenance, or other immunosuppressives. Yesterday patient was moved to the ICU for closer observation. In my initial note and in discussion with the hospitalist, I agreed with steroid use if needed from a pulmonary standpoint, at the lowest dose likely to be effective. If at all possible, would like to see the patient's current steroid dose lowered, ideally no more than prednisone 20 mg daily for now. Discussed with critical care service. Patient asking to be taken off bedrest, which would be fine from a neurologic standpoint. Patient likely would do better being in a chair for as much of the day as possible. Day 4 of IVIG today. Admission and Anticipated Discharge Date Admission Date: May 08, 2022 Subjective Patient without complaints. Believes she has improved by about 70% in terms of her speech and swallowing since admission. Does not feel short of breath. Tolerating IVIG well. No back pain, rash, itching. Still has mild headache, predates the IVIG. Says she ate breakfast and lunch yesterday with no difficulty, but now has been made NPO. Review of Systems Review of Systems: No change otherwise Physical Exam Physical Exam: Lying in bed, using her phone to text. Appears comfortable. Speech is slightly slurred and slightly nasal but perfectly intelligible. She can talk at a normal rate. Cannot fully retract lips. Can fully protrude tongue. Still with subtle ptosis on the left side only, but ocular movements are full. Using extremities appropriately. Results & Data ([facility]) Vital Signs (Past 12 Hours) Vital Signs Temp Pulse Pulse Resp BP Pulse Ox O2 Del Method 05/11/22 08:39 136/113 H 05/11/22 08:39 119 H 13 96 05/11/22 08:31 92 H 19 96 05/11/22 08:31 132/71 05/11/22 08:15 132/75 12/29/22 08:15 91 H 19 95 12/29/22 08:01 80 23 94 05/11/22 08:01 140/90 05/11/22 08:00 85 16 95 05/11/22 07:45 74 18 96 05/11/22 07:45 146/84 H 05/11/22 07:31 146/78 H 05/11/22 07:31 73 21 96 05/11/22 07:15 132/77 05/11/22 07:15 70 28 H 96 05/11/22 07:00 68 26 H 95 05/11/22 07:00 133/72 05/11/22 08:00 36.6 C 05/11/22 08:02 70 20 96 Nasal Cannula 05/11/22 07:53 Nasal Cannula 05/11/22 07:50 59 L 05/11/22 03:00 36.9 C 05/11/22 02:45 36.8 C 05/11/22 02:30 37.0 C 05/11/22 02:15 37.0 C 05/11/22 02:00 37.0 C 05/11/22 01:45 37.0 C 05/11/22 01:30 37.0 C 05/11/22 01:15 36.9 C 05/11/22 01:00 36.9 C 05/11/22 00:30 36.9 C 05/11/22 00:15 36.9 C 05/11/22 00:00 36.8 C 05/10/22 23:45 36.8 C 05/10/22 23:30 36.8 C 05/10/22 23:15 36.9 C 05/10/22 23:00 36.9 C 05/11/22 02:45 127/63 05/11/22 02:45 59 L 22 97 05/11/22 02:30 57 L 22 98 05/11/22 02:30 133/64 05/11/22 02:15 145/69 H 05/11/22 02:15 68 22 98 05/11/22 02:00 85 22 98 05/11/22 02:00 152/77 H 05/11/22 01:45 156/75 H 05/11/22 01:45 63 24 98 05/11/22 01:30 66 19 97 05/11/22 01:30 149/73 H 05/11/22 01:15 137/64 05/11/22 01:15 62 23 98 05/11/22 01:00 64 23 97 05/11/22 01:00 137/72 05/11/22 00:45 133/66 05/11/22 00:45 59 L 15 97 05/11/22 00:30 135/67 05/11/22 00:30 62 20 97 05/11/22 00:15 72 20 97 05/11/22 00:15 143/71 H 05/11/22 00:00 68 15 99 05/11/22 00:00 90/60 L 05/10/22 23:45 63 21 97 05/10/22 23:45 133/71 05/10/22 23:30 64 29 H 98 05/10/22 23:30 161/72 H 05/10/22 23:21 68 18 98 05/10/22 23:21 135/72 05/10/22 23:00 63 23 98 05/10/22 23:00 140/73 05/10/22 22:00 132/78 05/11/22 00:00 61 05/10/22 22:10 Nasal Cannula 05/10/22 22:00 64 23 132/78 98 O2 Flow Rate 05/11/22 08:39 05/11/22 08:39 05/11/22 08:31 05/11/22 08:31 05/11/22 08:15 05/11/22 08:15 05/11/22 08:01 05/11/22 08:01 05/11/22 08:00 05/11/22 07:45 05/11/22 07:45 05/11/22 07:31 05/11/22 07:31 05/11/22 07:15 05/11/22 07:15 05/11/22 07:00 05/11/22 07:00 05/11/22 08:00 05/11/22 08:02 2 05/11/22 07:53 3 05/11/22 07:50 05/11/22 03:00 05/11/22 02:45 05/11/22 02:30 05/11/22 02:15 05/11/22 02:00 05/11/22 01:45 05/11/22 01:30 05/11/22 01:15 05/11/22 01:00 05/11/22 00:30 05/11/22 00:15 05/11/22 00:00 05/10/22 23:45 05/10/22 23:30 05/10/22 23:15 05/10/22 23:00 05/11/22 02:45 05/11/22 02:45 05/11/22 02:30 05/11/22 02:30 05/11/22 02:15 05/11/22 02:15 05/11/22 02:00 05/11/22 02:00 05/11/22 01:45 05/11/22 01:45 05/11/22 01:30 05/11/22 01:30 05/11/22 01:15 05/11/22 01:15 05/11/22 01:00 05/11/22 01:00 05/11/22 00:45 05/11/22 00:45 05/11/22 00:30 05/11/22 00:30 05/11/22 00:15 05/11/22 00:15 05/11/22 00:00 05/11/22 00:00 05/10/22 23:45 05/10/22 23:45 05/10/22 23:30 05/10/22 23:30 05/10/22 23:21 05/10/22 23:21 05/10/22 23:00 05/10/22 23:00 05/10/22 22:00 05/11/22 00:00 05/10/22 22:10 3 05/10/22 22:00 3
[2022-05-11] MEDS ORDERED: ALBUT/IPRATROP 3MG/0.5MG NEB 3 ML VIAL NEB PRN (10:23)
[2022-05-11] MEDS: predniSONE 20 MG TAB PO SCH (10:39)
[2022-05-11] MEDS: ENOXAPARIN INJ 30 MG/0.3 ML SYR SQ SCH (15:17)
[2022-05-11] MEDS: REMDESIVIR 100 MG in SODIUM CHLORIDE 0.9% 230 ML IV SCH (20:55)
[2022-05-11] MEDS: diphenhydrAMINE 50 MG/ML VIAL IV SCH (21:25)
[2022-05-11] MEDS: ACETAMINOPHEN 500 MG TAB PO SCH (21:25)
--- NOTE | 2022-05-11 22:07 | Hospitalist Progress Note ---
Date of Service May 11, 2022 Assessment & Plan (1) Myasthenia gravis: Plan: with exacerbation - 2nd to #2. at high risk of further decompensation. appreciate neurology consultation. remains on mestinon qid. IVIG x 5 days -- day #4 today. will remain in ICU. Patient has not required intubation. (2) COVID: Plan: COVID-19, just a few days into her illness. remains on 2 L NC O2. day #2 of 5 of Remdesivir. AST/ALT wnl. defer initiation of steroids to ICU attending. ok from neurology to use steroids for asthma/COVID. supportive care, flutter valve, lay on side as much as possible, etc. CRP noted. May need CPAP or HFNC to provide respiratory support. CXR notably worse today - right sided opacities worsening COVID pneumonia vs bacterial superinfection vs atelectasis vs combination of factors. procal, however, wnl. low threshold for IV abx. (3) Asthma with exacerbation: Plan: 2nd to COVID-19 infection. bronchodilators. ?initiation of steroids. supportive care. (4) DVT prophylaxis: Plan: heparin 5000 BID (5) Dysphagia: Plan: appreciate speech consultation 2nd to #1 with exacerbation/flare +/- same or slightly better (6) Chronic hypertension: Plan: cont losartan (7) Candidiasis of mouth and esophagus: Plan: suspected nystatin 5cc qid swish/spit (8) Hypokalemia: Plan: replace IV serial labs replace low mag (9) Hypomagnesemia: Plan: replace IV repeat level late today wnl Plan appreciate Dr Daniel's consult appreciate neurology assistance remains full code including intubation Admission and Anticipated Discharge Date Admission Date: May 08, 2022 Subjective Patient reports she feels much better today. She has no new complaints. She is not close to baseline however. Review of Systems Review of Systems: All systems reviewed & are unremarkable except as noted in HPI & below Physical Exam Physical Exam: gen - Comfortable in chair, looks fatigued; bronchial cough eyes - b/l ptosis, L>R - looks worse to me today mouth - MMM neck - no JVD heart - RRR,s1,s2, no murmur lungs - worsened rales R base, mild rales L base, poor airation, occasional wheeze abd - soft NT ND BS+ neuro - dysarthric/garbled/marbly speech; strength in arms/legs about 5/5; no facial droop; ptosis as above ext - no edema, pulses 2+ b/l Results & Data Results & Data ([facility]) Vital Signs (Past 12 Hours) Vital Signs Pulse Resp BP Pulse Ox 05/11/22 18:30 137/87 05/11/22 18:30 84 22 05/11/22 18:15 88 28 H 05/11/22 18:15 148/83 H 05/11/22 18:00 90 24 05/11/22 18:00 145/93 H 05/11/22 17:45 86 15 05/11/22 17:45 139/75 05/11/22 17:30 135/79 05/11/22 17:30 91 H 21 05/11/22 17:15 91 H 21 05/11/22 17:15 142/83 H 05/11/22 17:00 94 H 21 05/11/22 17:00 147/88 H 05/11/22 16:45 148/110 H 05/11/22 16:45 91 H 18 05/11/22 16:31 84 13 95 05/11/22 16:31 152/94 H 05/11/22 16:00 80 26 H 93 05/11/22 16:00 151/84 H 05/11/22 15:45 85 23 94 05/11/22 15:45 156/89 H 05/11/22 15:30 157/96 H 05/11/22 15:30 85 29 H 95 05/11/22 15:00 91 H 25 H 95 05/11/22 15:00 154/109 H 05/11/22 14:00 87 24 95 05/11/22 13:30 135/87 05/11/22 13:30 86 13 95 05/11/22 13:00 88 15 95 05/11/22 13:00 143/93 H 05/11/22 12:49 94 H 38 H 97 05/11/22 12:49 168/95 H 05/11/22 12:30 91 H 21 96 05/11/22 12:30 136/88 05/11/22 15:00 84 05/11/22 12:15 157/102 H 05/11/22 12:15 99 H 23 96 05/11/22 12:00 92 H 25 H 98 05/11/22 12:00 135/86 05/11/22 11:45 139/88 05/11/22 11:45 92 H 20 96 05/11/22 11:30 150/109 H 05/11/22 11:30 102 H 24 95 05/11/22 11:15 93 H 17 96 05/11/22 11:15 136/80 05/11/22 11:00 92 H 22 95 05/11/22 11:00 127/76 05/11/22 10:45 143/85 H 05/11/22 10:45 91 H 26 H 96 05/11/22 10:15 90 22 97 05/11/22 10:15 149/76 H PG Care Time/CCT Total # of Minutes Spent Total Time Spent with Patient: Total time spent is greater than 50% in coordination of care (as documented) at patient's floor/unit and/or counseling patient: Coding Level of Care Code 83376 Subseq Hosp Care Lvl 2 Diagnoses Myasthenia gravis G70.00 COVID U07.1 Asthma with exacerbation J45.901 DVT prophylaxis Z29.9 Dysphagia R13.10 Chronic hypertension I10 Candidiasis of mouth and esophagus B37.81; B37.0 Hypokalemia E87.6 Hypomagnesemia E83.42 Time Spent (min) 25
[2022-05-11] MEDS: Octagam 10% IVIG 5 gram bottle IV SCH (22:15)
[2022-05-12 05:32] LABS: Hematocrit (blood only) 36.5 % (34.1-44.9); Hemoglobin 12.2 g/dl (12.0-16.0); Immature Granulocytes # (auto) 0.02 K/uL (0.00-0.02); Immature Granulocytes % (auto) 0.4 %; Lymphocytes # (auto) 0.66 K/uL (1.2-3.4); Lymphocytes % (auto) 11.6 %; Mean Corpuscular Hemoglobin 29.3 pg (25.0-34.0); Mean Corpuscular Hgb Conc 33.4 g/dL (32.0-36.0); Mean Corpuscular Volume 87.7 fL (80.0-100.0); Mean Platelet Volume 10.2 fL (9.4-12.3); Monocytes # (auto) 0.28 K/uL (0.24-0.82); Monocytes % (auto) 4.9 %; Neutrophils # (auto) 4.74 K/uL (1.4-6.5); Neutrophils % (auto) 83.1 %; Platelet Count 192 K/uL (130-400); RDW Coefficient of Variation 13.1 % (11.5-14.5); RDW Standard Deviation 42.3 fL (36.4-46.3); Red Blood Count 4.16 M/uL (3.93-5.22)
[2022-05-12 06:03] LABS: BUN Creatinine Ratio 28.1 (10-20); Calcium 8.1 mg/dl (8.5-10.1); Est GFR (African American) 95.6 ml/min; Est GFR (Non-African American) 82.5 ml/min; Magnesium 1.8 mg/dl (1.7-2.4); Phosphorus 3.4 mg/dl (2.5-4.9); Potassium 4.1 mmol/L (3.5-5.1)
[2022-05-12] MEDS: pyRIDostigmine bromide 60 MG TAB PO SCH ×4 (07:50→20:25)
[2022-05-12] MEDS: NYSTATIN SUSP 500,000 U/5 ML UDC PO SCH ×4 (07:50→20:25)
[2022-05-12] MEDS: FLUTICASONE FUROATE 100MCG 14 PUFFS/INHALER INH SCH (07:50)
[2022-05-12] MEDS: UMECLIDINIUM/VILANTEROL 62.5/25MCG 7 PUFFS/INHALER INH SCH (07:50)
[2022-05-12] MEDS: MIRABEGRON ER 25 MG TAB PO SCH (07:56)
[2022-05-12] MEDS: FOLIC ACID 1 MG TAB PO SCH (07:56)
[2022-05-12] MEDS: guaiFENesin 600 MG TABCR PO SCH ×2 (07:56→20:25)
[2022-05-12] MEDS: predniSONE 20 MG TAB PO SCH (07:57)
[2022-05-12] MEDS: GLYCOPYRROLATE 1 MG TAB PO SCH (07:57)
[2022-05-12] MEDS: MONTELUKAST SODIUM 10 MG TABLET PO SCH (07:57)
[2022-05-12] MEDS: LOSARTAN POTASSIUM 50 MG TAB PO SCH (07:57)
[2022-05-12] MEDS: LACTATED RINGER'S 1,000 ML IV SCH ×2 (09:13→22:58)
[2022-05-12] MEDS: ENOXAPARIN INJ 30 MG/0.3 ML SYR SQ SCH (09:13)
--- NOTE | 2022-05-12 09:28 | XRay Report ---
SINGLE VIEW CHEST CLINICAL HISTORY: Mucoid impaction FINDINGS: 2 AP, portable, upright chest radiographs are compared to study dated 05/10/2022. The exami nation is degraded by portable technique, apical lordotic positioning, and patient rotation. A left s ubclavian central venous infusion port is unchanged in position. The heart is enlarged. The pulmonar y vasculature is noncontrast. A hiatal hernia is noted. Bibasilar opacities likely represent scarring /atelectasis. No large pleural effusion or pneumothorax is seen. The skeletal structures are osteopen ic. The bony thorax is grossly intact. IMPRESSION: 1. Cardiomegaly without radiographic evidence of congestive failure. 2. Bibasilar airspace opacities likely represent scarring/atelectasis. Clinical correlation will be r equired. 3. Hiatal hernia. ACT 112: Negative or not required by law. Electronically signed by: Chandrakant Orozco M.D. 05/12/2022 9:26 AM
--- NOTE | 2022-05-12 09:59 | Critical Care Progress Note ---
Date of Service May 12, 2022 Assessment & Plan (1) Myasthenia gravis with acute exacerbation: Plan: Reason Critically Ill: 81-year-old female in acute myasthenic crisis PLAN: Neuro: Myasthenia gravis -Continue with IVIG -Discussed steroids with neurology: Initiated steroid taper -Patient agreeable with intubation mechanical ventilation for respiratory insufficiency -Continue pyridostigmine -Continue Robinul Resp: COVID-19 infection -On remdesivir -Continue aggressive chest physiotherapy -Negative inspiratory force every 8 hours -Negative inspiratory force increasing vital capacity acceptable I am hopeful she will continue to improve her neuromuscular function CV: Chronic hypertension -Continue current home regimen Fluids/Renal: Mild hypokalemia: Resolved Mild hypomagnesemia -Will consider enteral replacement -Parenteral replacement relatively contraindicated myasthe minesh crisis ID: COVID-19 infection -No indication for antibiotics at this time GI/Nutrition: Patient feels stronger today will allow minced and moist use to assist with swallowing and Ensure supplementation Heme: DVT prophylaxis: Heparin 5000 units twice daily, convert to Lovenox for easier administration Endocrine: ICU hyperglycemia protocol Vascular access: Port-A-Cath in place Code Status: Full code Disposition: Given improvement stable for downgrade out of ICU. (2) Chronic hypertension: (3) COVID-19: (4) Respiratory failure: Admission and Anticipated Discharge Date Admission Date: May 08, 2022 Subjective No overnight events Physical Exam Physical Exam: General: Alert. nontoxic. Skin: Warm, dry, Head: Atraumatic Ears, nose, mouth and throat: airway patent Cardiovascular: Normal peripheral perfusion Respiratory: no respiratory distress, mild tachypnea Gastrointestinal: Non distended Musculoskeletal: No deformity Results & Data Results & Data ([facility]) Vital Signs (Past 12 Hours) Vital Signs Temp Pulse Resp BP Pulse Ox Pulse Ox O2 Del Method 05/12/22 08:09 77 18 98 05/12/22 08:09 172/85 H 05/12/22 07:00 36.8 C 05/12/22 08:00 98 05/12/22 08:00 Nasal Cannula 05/12/22 07:00 70 05/12/22 07:00 70 22 95 05/12/22 06:00 62 18 95 05/12/22 06:00 140/75 05/12/22 05:00 74 22 94 05/12/22 05:00 132/72 05/12/22 04:00 60 20 96 05/12/22 04:00 147/80 H 05/12/22 03:16 64 18 95 05/12/22 03:16 140/79 05/12/22 03:00 57 L 26 H 97 05/12/22 03:00 168/81 H 05/12/22 02:45 68 17 96 05/12/22 02:45 144/80 H 05/12/22 02:30 166/85 H 05/12/22 02:30 63 26 H 96 05/12/22 02:16 141/78 H 05/12/22 02:16 62 23 96 05/11/22 22:45 Nasal Cannula 05/12/22 02:01 160/86 H 05/12/22 02:01 62 21 96 05/12/22 02:00 71 21 95 05/12/22 01:45 56 L 25 H 95 05/12/22 01:45 154/75 H 05/12/22 01:15 62 23 95 05/12/22 01:15 153/81 H 05/12/22 01:01 65 24 96 05/12/22 01:01 145/79 H 05/12/22 01:00 67 20 95 05/12/22 00:30 159/71 H 05/12/22 00:30 63 23 96 05/12/22 00:16 71 21 94 05/12/22 00:16 153/78 H 05/12/22 00:00 59 L 20 95 05/12/22 00:00 164/76 H 05/11/22 23:45 168/76 H 05/11/22 23:45 59 L 22 96 05/11/22 23:15 140/103 H 05/11/22 23:15 61 18 93 05/11/22 23:00 63 18 95 05/11/22 23:00 150/73 H 05/11/22 22:45 143/75 H 05/11/22 22:45 62 26 H 94 05/11/22 22:31 75 15 94 05/11/22 22:31 154/78 H 05/11/22 22:00 66 22 94 05/11/22 22:00 152/88 H 05/12/22 01:45 37.1 C 05/12/22 01:30 37.1 C 05/12/22 01:00 36.9 C 05/12/22 01:15 36.9 C 05/12/22 00:45 36.9 C 05/12/22 00:15 36.8 C 05/12/22 00:00 37.0 C 05/11/22 23:45 37.0 C 05/11/22 23:00 37.0 C 05/11/22 23:30 36.9 C 05/11/22 23:15 36.9 C 05/11/22 22:45 37.0 C 05/11/22 23:00 36.9 C 05/11/22 22:30 36.8 C 05/11/22 22:15 36.7 C 05/12/22 00:30 36.9 C 05/11/22 22:00 36.8 C 05/11/22 23:00 58 L O2 Del Method O2 Flow Rate 05/12/22 08:09 05/12/22 08:09 05/12/22 07:00 05/12/22 08:00 Nasal Cannula 05/12/22 08:00 3 05/12/22 07:00 05/12/22 07:00 05/12/22 06:00 05/12/22 06:00 05/12/22 05:00 05/12/22 05:00 05/12/22 04:00 05/12/22 04:00 05/12/22 03:16 05/12/22 03:16 05/12/22 03:00 05/12/22 03:00 05/12/22 02:45 05/12/22 02:45 05/12/22 02:30 05/12/22 02:30 05/12/22 02:16 05/12/22 02:16 05/11/22 22:45 3 05/12/22 02:01 05/12/22 02:01 05/12/22 02:00 05/12/22 01:45 05/12/22 01:45 05/12/22 01:15 05/12/22 01:15 05/12/22 01:01 05/12/22 01:01 05/12/22 01:00 05/12/22 00:30 05/12/22 00:30 05/12/22 00:16 05/12/22 00:16 05/12/22 00:00 05/12/22 00:00 05/11/22 23:45 05/11/22 23:45 05/11/22 23:15 05/11/22 23:15 05/11/22 23:00 05/11/22 23:00 05/11/22 22:45 05/11/22 22:45 05/11/22 22:31 05/11/22 22:31 05/11/22 22:00 05/11/22 22:00 05/12/22 01:45 05/12/22 01:30 05/12/22 01:00 05/12/22 01:15 05/12/22 00:45 05/12/22 00:15 05/12/22 00:00 05/11/22 23:45 05/11/22 23:00 05/11/22 23:30 05/11/22 23:15 05/11/22 22:45 05/11/22 23:00 05/11/22 22:30 05/11/22 22:15 05/12/22 00:30 05/11/22 22:00 05/11/22 23:00 Coding Level of Care Code 49428 Subseq Hosp Care Lvl 3 Diagnoses Myasthenia gravis with acute exacerbation G70.01 Chronic hypertension I10 COVID-19 U07.1 Respiratory failure J96.90
[2022-05-12] MEDS: REMDESIVIR 100 MG in SODIUM CHLORIDE 0.9% 230 ML IV SCH (20:52)
[2022-05-12] MEDS: ACETAMINOPHEN 500 MG TAB PO SCH (21:54)
[2022-05-12] MEDS: diphenhydrAMINE 50 MG/ML VIAL IV SCH (21:55)
--- NOTE | 2022-05-12 22:13 | Hospitalist Progress Note ---
Date of Service May 12, 2022 Assessment & Plan (1) Myasthenia gravis: Plan: with exacerbation - 2nd to #2. Patient was in the ICU over concern that she was getting more fatigued and may require intubation Thankfully, this did not occur and patient required about 48 hours of close monitoring in ICU without intubating. appreciate neurology consultation. Continue pyridostigmine -Continue Robinul IVIG x 5 days -- day #5 steroid taper intiatied and ordered Willl transfer out of the ICU. (2) COVID: Plan: COVID-19, just a few days into her illness. remains on 2 L NC O2. day #2 of 5 of Remdesivir. AST/ALT wnl. defer initiation of steroids to ICU attending. ok from neurology to use steroids for asthma/COVID. supportive care, flutter valve, lay on side as much as possible, etc. CRP noted. May need CPAP or HFNC to provide respiratory support. CXR notably worse today - right sided opacities worsening COVID pneumonia vs bacterial superinfection vs atelectasis vs combination of factors. procal, however, wnl. low threshold for IV abx. (3) Asthma with exacerbation: Plan: 2nd to COVID-19 infection. bronchodilators. steroids as above. supportive care. (4) DVT prophylaxis: Plan: heparin 5000 BID (5) Dysphagia: Plan: appreciate speech consultation 2nd to #1 with exacerbation/flare +/- same or slightly better (6) Chronic hypertension: Plan: cont losartan (7) Candidiasis of mouth and esophagus: Plan: suspected nystatin 5cc qid swish/spit (8) Hypokalemia: Plan: replace IV serial labs replace low mag (9) Hypomagnesemia: Plan: replace IV Plan appreciate Dr Daniel's consult appreciate neurology assistance remains full code Admission and Anticipated Discharge Date Admission Date: May 08, 2022 Subjective 81 yo female reports to be breathing better, but not quite at baseline. She states no new complaints. Review of Systems Review of Systems: All systems reviewed & are unremarkable except as noted in HPI & below Physical Exam Physical Exam: gen - Comfortable in chair, bronchial cough eyes - minimal ptosis mouth - MMM neck - no JVD heart - RRR,s1,s2, no murmur lungs - improved breath sounds. abd - soft NT ND BS+ neuro - normal speech, strength in arms/legs about 5/5; no facial droop; ptosis as above ext - no edema, pulses 2+ b/l Results & Data Results & Data ([facility]) Vital Signs (Past 12 Hours) Vital Signs Temp Pulse Pulse Resp BP BP BP 05/12/22 21:17 05/12/22 19:21 36.5 C 59 L 22 193/93 H 05/12/22 16:23 171/79 H 05/12/22 15:49 36.6 C 57 L 20 199/77 H 05/12/22 15:07 63 23 05/12/22 15:07 173/89 H 05/12/22 15:04 193/91 H 05/12/22 15:04 61 22 05/12/22 14:00 61 23 05/12/22 14:00 148/77 H 05/12/22 13:00 63 26 H 05/12/22 13:00 159/79 H 05/12/22 12:00 67 18 05/12/22 12:00 165/70 H 05/12/22 11:38 67 22 05/12/22 11:38 170/121 H 05/12/22 11:36 67 23 05/12/22 11:36 151/126 H 05/12/22 15:13 36.6 C 05/12/22 15:00 63 05/12/22 11:00 63 22 145/78 H 05/12/22 11:38 37.0 C Pulse Ox O2 Del Method O2 Flow Rate 05/12/22 21:17 Room Air 05/12/22 19:21 97 Nasal Cannula 2.0 05/12/22 16:23 05/12/22 15:49 92 Room Air 05/12/22 15:07 93 05/12/22 15:07 05/12/22 15:04 05/12/22 15:04 96 05/12/22 14:00 94 05/12/22 14:00 05/12/22 13:00 98 05/12/22 13:00 05/12/22 12:00 96 05/12/22 12:00 05/12/22 11:38 99 05/12/22 11:38 05/12/22 11:36 98 05/12/22 11:36 05/12/22 15:13 05/12/22 15:00 05/12/22 11:00 99 05/12/22 11:38 PG Care Time/CCT Total # of Minutes Spent Total Time Spent with Patient: Total time spent is greater than 50% in coordination of care (as documented) at patient's floor/unit and/or counseling patient: Coding Level of Care Code 33477 Subseq Hosp Care Lvl 3 Diagnoses Myasthenia gravis G70.00 COVID U07.1 Asthma with exacerbation J45.901 DVT prophylaxis Z29.9 Dysphagia R13.10 Chronic hypertension I10 Candidiasis of mouth and esophagus B37.81; B37.0 Hypokalemia E87.6 Hypomagnesemia E83.42
[2022-05-12] MEDS: Octagam 10% IVIG 5 gram bottle IV SCH (22:58)
[2022-05-13] MEDS: IMMUN GLOBG(IGG)/MALT/IGA OV50 200 ML IV SCH (00:19)
[2022-05-13 06:12] LABS: Hematocrit (blood only) 36.2 % (34.1-44.9); Immature Granulocytes # (auto) 0.03 K/uL (0.00-0.02); Immature Granulocytes % (auto) 0.6 %; Lymphocytes # (auto) 1.18 K/uL (1.2-3.4); Lymphocytes % (auto) 22.2 %; Mean Corpuscular Hemoglobin 28.9 pg (25.0-34.0); Mean Corpuscular Hgb Conc 33.1 g/dL (32.0-36.0); Mean Corpuscular Volume 87.2 fL (80.0-100.0); Mean Platelet Volume 10.4 fL (9.4-12.3); Monocytes # (auto) 0.32 K/uL (0.24-0.82); Neutrophils # (auto) 3.79 K/uL (1.4-6.5); Neutrophils % (auto) 71.2 %; Platelet Count 191 K/uL (130-400); RDW Coefficient of Variation 12.8 % (11.5-14.5); Red Blood Count 4.15 M/uL (3.93-5.22); White Blood Count 5.32 K/ul (4.8-10.8)
[2022-05-13 06:38] LABS: Creatinine Clr Calc Pharmacy 62.9 ml/min; Est GFR (African American) 98.8 ml/min; Est GFR (Non-African American) 85.2 ml/min; Magnesium 1.6 mg/dl (1.7-2.4); Phosphorus 2.5 mg/dl (2.5-4.9); Potassium 3.5 mmol/L (3.5-5.1)
--- NOTE | 2022-05-13 07:33 | XRay Report ---
XR chest 1V portable CLINICAL HISTORY: mucoid impaction COMPARISON STUDY: Chest radiograph May 12, 2022. FINDINGS: Left subclavian Ocyvin-g-Stja is in place. There is no pneumothorax. A small right pleural effusion is similar to prior exam. Right lower lung airspace opacity persists. Minimal left basilar o pacity is again noted. Cardiomediastinal silhouette is stable. There is a hiatal hernia. No evidence for pulmonary edema. IMPRESSION: No significant change in right basilar opacity which could reflect pneumonia or aspirati on pneumonitis. Small right pleural effusion. ACT 112: Negative or not required by law. Electronically signed by: David Duran M.D. 05/13/2022 7:31 AM
[2022-05-13] MEDS: NYSTATIN SUSP 500,000 U/5 ML UDC PO SCH ×4 (08:04→19:24)
[2022-05-13] MEDS: FLUTICASONE FUROATE 100MCG 14 PUFFS/INHALER INH SCH (08:05)
[2022-05-13] MEDS: guaiFENesin 600 MG TABCR PO SCH ×2 (08:05→19:22)
[2022-05-13] MEDS: MONTELUKAST SODIUM 10 MG TABLET PO SCH (08:05)
[2022-05-13] MEDS: LOSARTAN POTASSIUM 50 MG TAB PO SCH (08:05)
[2022-05-13] MEDS: MIRABEGRON ER 25 MG TAB PO SCH (08:05)
[2022-05-13] MEDS: predniSONE 10 MG TABLET PO SCH (08:05)
[2022-05-13] MEDS: GLYCOPYRROLATE 1 MG TAB PO SCH (08:05)
[2022-05-13] MEDS: FOLIC ACID 1 MG TAB PO SCH (08:05)
[2022-05-13] MEDS: ENOXAPARIN INJ 30 MG/0.3 ML SYR SQ SCH (08:05)
[2022-05-13] MEDS: UMECLIDINIUM/VILANTEROL 62.5/25MCG 7 PUFFS/INHALER INH SCH (08:06)
[2022-05-13] MEDS: pyRIDostigmine bromide 60 MG TAB PO SCH ×4 (08:45→19:24)
[2022-05-13] MEDS: POTASSIUM CHLORIDE CRTAB 20 MEQ TABCR PO SCH (10:19)
[2022-05-13] MEDS: MAGNESIUM SULFATE / D5W 1 GM/100 ML BAG IV SCH ×2 (10:19→12:22)
--- NOTE | 2022-05-13 14:56 | Hospitalist Progress Note ---
Date of Service May 13, 2022 Assessment & Plan (1) Myasthenia gravis: Plan: Improved. She has completed her 5-day course of daily IVIG. Appreciate neurology consultation and recommendations. Continue OT and PT . Continue pyridostigmine and steroid taper (2) COVID: Plan: COVID-19, just a few days into her illness. She is now on room air. Day #3 of Remdesivir. Supportive care, flutter valve, lay on side as much as possible, etc. (3) Asthma with exacerbation: Plan: 2nd to COVID-19 infection. Continue bronchodilators, steroids as above. Supportive care. (4) DVT prophylaxis: Plan: heparin 5000 SQ BID (5) Dysphagia: Plan: appreciate speech consultation . Chronic with exacerbation/flare. (6) Chronic hypertension: Plan: cont losartan. Controlled (7) Candidiasis of mouth and esophagus: Plan: Improved with nystatin 5cc qid swish/spit (8) Hypokalemia: Plan: replaced IV initially. Now on p.o. supplementation. Serial labs replace low mag (9) Hypomagnesemia: Plan: replace IV and p.o. Serial lab Plan Anticipate eventual discharge to home. Hopefully tomorrow, May 14 Admission and Anticipated Discharge Date Admission Date: May 08, 2022 Subjective Alert and oriented. No acute distress. She is now on room air. Magnesium and potassium replacement continue. Oral intake is adequate. IV fluids disconti nued. She has completed her 5-day course of IVIG. Hopefully home tomorrow, May 14 Review of Systems Review of Systems: Constitutional-no fever or chills ENT-no blurred vision, no double vision, no epistaxis, no sore throat Respiratory-no cough, no wheezing, no shortness of breath Cardiac-no palpitations, no chest pain, no syncope GI-no nausea, vomiting, diarrhea, melena, hematochezia -no urinary retention, no urinary incontinence, no dysuria, no hematuria Musculoskeletal-no joint pain, no muscle tenderness Skin-no bruising, no rashes, no pruritus Neuro-no isolated weakness, no paresthesia, no weakness Psych-no depression, no anxiety Physical Exam Physical Exam: General-alert and oriented x3, no fevers, no chills HEENT-head atraumatic and normocephalic, pupils equal and reactive to light, extraocular muscles intact Neck-no lymphadenopathy or thyromegaly, trachea midline Chest-clear to auscultation percussion. No rales wheezing or rhonchi Cardiac-regular rate and rhythm, normal S1 and S2 Abdomen-normal bowel sounds, nontender, no hepatosplenomegaly Extremities-no cyanosis, clubbing, or edema Neuro-cranial nerves II through XII intact, motor and sensory function within normal limits, strength symmetrical , no focal deficits Psych-normal affect, normal mood Results & Data Results & Data ([facility]) Vital Signs (Past 12 Hours) Vital Signs Temp Pulse Pulse Resp BP Pulse Ox O2 Del Method 05/13/22 12:27 36.5 C 81 18 166/98 H 93 Room Air 05/13/22 08:00 Room Air 05/13/22 08:00 57 L 05/13/22 07:59 36.3 C L 65 18 191/81 H 92 05/13/22 04:07 36.3 C L 53 L 14 165/66 H 93 Room Air Laboratory Results 05/13/22 05:25 05/13/22 05:25 PG Care Time/CCT Total # of Minutes Spent Total Time Spent with Patient: Total time spent is greater than 50% in coordination of care (as documented) at patient's floor/unit and/or counseling patient: Coding Level of Care Code 00038 Subseq Hosp Care Lvl 3 Diagnoses Myasthenia gravis G70.00 COVID U07.1 Asthma with exacerbation J45.901 DVT prophylaxis Z29.9 Dysphagia R13.10 Chronic hypertension I10 Candidiasis of mouth and esophagus B37.81; B37.0 Hypokalemia E87.6 Hypomagnesemia E83.42
[2022-05-13] MEDS: MAGNESIUM OXIDE 400 MG TAB PO SCH (19:24)
[2022-05-13] MEDS: REMDESIVIR 100 MG in SODIUM CHLORIDE 0.9% 230 ML IV SCH (19:25)
[2022-05-13] MEDS ORDERED: HEPARIN 100 UNIT/ML 5ML FLUSH ONE (20:53)
[2022-05-14] MEDS ORDERED: HEPARIN 100 UNIT/ML 5ML FLUSH FLUSH PRN (03:03)
[2022-05-14 07:20] LABS: Basophils # (auto) 0.01 K/uL (0-0.2); Basophils % (auto) 0.2 %; Eosinophils # (auto) 0.02 K/uL (0-0.50); Eosinophils % (auto) 0.4 %; Hematocrit (blood only) 40.8 % (34.1-44.9); Hemoglobin 13.7 g/dl (12.0-16.0); Immature Granulocytes # (auto) 0.02 K/uL (0.00-0.02); Immature Granulocytes % (auto) 0.4 %; Lymphocytes # (auto) 1.62 K/uL (1.2-3.4); Mean Corpuscular Hgb Conc 33.6 g/dL (32.0-36.0); Mean Corpuscular Volume 86.4 fL (80.0-100.0); Mean Platelet Volume 10.5 fL (9.4-12.3); Monocytes # (auto) 0.42 K/uL (0.24-0.82); Monocytes % (auto) 7.8 %; Neutrophils # (auto) 3.31 K/uL (1.4-6.5); Neutrophils % (auto) 61.2 %; Platelet Count 214 K/uL (130-400); RDW Coefficient of Variation 13.1 % (11.5-14.5); RDW Standard Deviation 41.5 fL (36.4-46.3); Red Blood Count 4.72 M/uL (3.93-5.22)
--- NOTE | 2022-05-14 07:41 | XRay Report ---
XR chest 1V portable CLINICAL HISTORY: mucoid impaction COMPARISON STUDY: Chest radiograph May 13, 2022. FINDINGS: Left subclavian [id number] remains in place. Cardiomediastinal silhouette is stable. Sma ll right pleural effusion is similar to prior exam. There is no pneumothorax. Right lower lung airspa ce opacity has improved. There is persistent left basilar opacity. There is no evidence for pulmonary edema. IMPRESSION: 1. No change in a small right pleural effusion. Interval improvement in right basilar airspace opacit y. 2. No significant change in left basilar opacity. ACT 112: Negative or not required by law. Electronically signed by: David Duran M.D. 05/14/2022 7:39 AM
[2022-05-14 07:46] LABS: BUN Creatinine Ratio 28.6 (10-20); Calcium 8.2 mg/dl (8.5-10.1); Creatinine Clr Calc Pharmacy 56.5 ml/min; Est GFR (African American) 96.1 ml/min; Est GFR (Non-African American) 82.9 ml/min; Phosphorus 2.8 mg/dl (2.5-4.9); Potassium 3.7 mmol/L (3.5-5.1)
[2022-05-14] MEDS: POTASSIUM CHLORIDE CRTAB 20 MEQ TABCR PO SCH (08:32)
[2022-05-14] MEDS: NYSTATIN SUSP 500,000 U/5 ML UDC PO SCH (08:32)
[2022-05-14] MEDS: pyRIDostigmine bromide 60 MG TAB PO SCH (08:32)
[2022-05-14] MEDS: predniSONE 10 MG TABLET PO SCH (08:32)
[2022-05-14] MEDS: GLYCOPYRROLATE 1 MG TAB PO SCH (08:33)
[2022-05-14] MEDS: MONTELUKAST SODIUM 10 MG TABLET PO SCH (08:33)
[2022-05-14] MEDS: guaiFENesin 600 MG TABCR PO SCH (08:33)
[2022-05-14] MEDS: LOSARTAN POTASSIUM 50 MG TAB PO SCH (08:33)
[2022-05-14] MEDS: MAGNESIUM OXIDE 400 MG TAB PO SCH (08:33)
[2022-05-14] MEDS: MIRABEGRON ER 25 MG TAB PO SCH (08:33)
[2022-05-14] MEDS: FOLIC ACID 1 MG TAB PO SCH (08:33)
[2022-05-14] MEDS: ENOXAPARIN INJ 30 MG/0.3 ML SYR SQ SCH (08:33)
[2022-05-14] MEDS: UMECLIDINIUM/VILANTEROL 62.5/25MCG 7 PUFFS/INHALER INH SCH (08:34)
[2022-05-14] MEDS: FLUTICASONE FUROATE 100MCG 14 PUFFS/INHALER INH SCH (08:34)
--- NOTE | 2022-05-14 11:06 | Discharge Summary ---
Date of Service May 14, 2022 Admission HPI Per Admitting Provider Suspect myesthenia gravis flare 2/2 COVID PNA. Daughter with cold last week Pt with grabling, weak voice last week increased trouble swallowing in last 24 hours Hx aspiration with m. gravis flares in the past Fever yesterday, none today no body aches COVID+ Nuerology: IVIG Dr. Mesha mahmood. Neuro consulted for AM. Denies cough, shortness of breath, lightheadedness, dizziness, chest pain, chest pressure. Patient Dors she is tired and fatigued, and cannot swallow. Is having difficulty speaking. She reports at baseline her voice is clear and she does not have any problems with eye drooping, dysphagia. Please have occurred in the last 24 hours consistent with prior flares. She does get IVIG as an outpatient, was due next week for her next routine dose. Has never been on steroids before. Daughter with COVID at home. Patient has not had any shortness of breath, difficulty breathing but did notice worsened difficulty with speech and swallowing similar to prior dysarthria flares.Takes pyridostigmine, glycopyrrolate, cyclosporine eyedrops at home in addition to her inhaler, mirabegron, montelukast. Has a port which they normally use for IVIG infusions CT-H: 1. No acute intracranial abnormality. 2. Large right mastoid effusion. CXR: 1. No acute cardiopulmonary findings. 2. Cardiomegaly.3. Hiatal hernia. CRP pending M. gravix 400mg/kg daily x5 days Medical History: Reviewed Medications: Reviewed Surgical History: Reviewed Allergies: Reviewed Social History: Reviewed Code Status: Full code Principal Diagnosis Acute COVID-19 infection, acute exacerbation myasthenia gravis, acute hypoxic respiratory failure, hypokalemia, hypomagnesemia Discharge Exam General-alert and oriented x3, no fevers, no chills HEENT-head atraumatic and normocephalic, pupils equal and reactive to light, extraocular muscles intact Neck-no lymphadenopathy or thyromegaly, trachea midline Chest-clear to auscultation percussion. No rales wheezing or rhonchi Cardiac-regular rate and rhythm, normal S1 and S2 Abdomen-normal bowel sounds, nontender, no hepatosplenomegaly Extremities-no cyanosis, clubbing, or edema Neuro-cranial nerves II through XII intact, motor and sensory function within normal limits, strength symmetrical , no focal deficits Psych-normal affect, normal mood Discharge Data Allergies Allergy/AdvReac Type Severity Reaction Status Date / Time clindamycin Allergy Intermediate Rash Verified 04/13/22 09:01 Penicillins Allergy Intermediate Rash Verified 04/13/22 09:01 diazepam [From Valium] AdvReac Severe Vomiting Verified 04/13/22 09:01 mometasone furoate AdvReac Intermediate Vomiting Verified 04/13/22 09:01 [From Nasonex] Consultations 05/08/22 17:43 ED Decision to Admit Stat 05/08/22 21:32 Consult Neurology Routine 05/10/22 18:47 Consult Air Analysis Technician Routine Ordered Studies 05/08/22 11:47 CT head/brain wo con Stat Hospital Course (1) Myasthenia gravis: Exacerbation has resolved. She is now back to her baseline. She has completed her 5-day course of daily IVIG. Appreciate neurology consultation and recommendations. Continue OT and PT . Continue pyridostigmine and steroid taper (2) COVID: Acute , just a few days into her illness. She is now on room air. She was treated with remdesivir while hospitalized. Currently stable (3) Asthma with exacerbation: 2nd to COVID-19 infection. Continue bronchodilators, steroids as above. Supportive care. Now resolved (4) DVT prophylaxis: heparin 5000 SQ BID (5) Dysphagia: appreciate speech consultation . Chronic with exacerbation/flare. (6) Chronic hypertension: cont losartan. Controlled (7) Candidiasis of mouth and esophagus: Resolved with nystatin 5cc qid swish/spit (8) Hypokalemia: replaced IV initially. Now on p.o. supplementation. Serial labs. Replaced low mag also (9) Hypomagnesemia: replaced IV and p.o. resolved. Serial lab Plan discharge to home todayMay 14 Total Time Total Time Spent Total Time Spent (In Minutes): 35 minutes Discharge Plan Discharge Items Patient Disposition: Home - Self-Care Reason For Visit: MYESTHENIA FLARE, COVID Discharge Diagnosis: Acute COVID infection, transient hypoxic respiratory failure, exacerbation myasthenia gravis, hypokalemia, hypomagnesemia Condition on Discharge: Fair Activity: Resume your previous activity Non-emergency contact: Primary Care Provider Call non-emergency contact if: you have any medication questions and your symptoms worsen Follow-up/Referrals: Femi Moreno [Primary Care Provider] - Diet: Heart Healthy Addtl Attending Provider Instructions: Self quarantine for 10 days from the date of original diagnosis of COVID. Take vitamin D and zinc supplements for 2 weeks Pending Studies at Discharge: No Stand-Alone Forms: My [facility], Smoking Cessation Medications and DC Order Prescriptions: New potassium chloride 20 mEq Tablet,Er Particles/Crystals 20 meq PO QAM Qty: 30 0RF magnesium oxide 400 mg (241.3 mg magnesium) Tablet 400 mg PO BID Qty: 60 0RF Continued glycopyrrolate 1 mg tablet 1 mg PO DAILY Qty: 30 5RF cyclosporine 0.05 % dropperette 1 drp ophthalmic (eye) Q12H Trelegy Ellipta 100-62.5-25 mcg blister with device 1 inh inhalation DAILY losartan [Cozaar] 100 mg tablet 100 mg PO DAILY montelukast [Singulair] 10 mg tablet 10 mg PO DAILY Myrbetriq 50 mg tablet extended release 24 hr 50 mg PO DAILY pyridostigmine bromide [Mestinon] 60 mg tablet 90 mg PO QID 30 Days Qty: 180 5RF Gammagard Liquid 10 % solution 30 g IV Q4WK 28 Days Qty: 300 11RF Rx Instructions: 0.5mL/kg/hr x 30 min, increase q30 min up to 5mL/kg/hr as tolerated. 30min prior to infusion, pretreat with acetaminophen 650mg PO and diphenhydramine 25mg IV. Flush with 0.9% NaCl and heparin per protocol. folic acid 1 mg Tablet 1 mg PO DAILY Discharge Orders: Discharge Order (Routine); Ordered 05/14/22 Ordered By: Sridhar Manley Admission Data Admit Date/Time: 05/08/22 18:31 Attending Provider: Sridhar Manley Admit Provider: Bryan Moreira Primary Care Provider: Femi Moreno Other Providers: Bryan Moreira ; Chapito Luis ; Chapito Daniel Coding Level of Care Code D/C DAY MANAGEMENT >30 MINS Diagnoses Myasthenia gravis G70.00 COVID U07.1 Asthma with exacerbation J45.901 DVT prophylaxis Z29.9 Dysphagia R13.10 Chronic hypertension I10 Candidiasis of mouth and esophagus B37.81; B37.0 Hypokalemia E87.6 Hypomagnesemia E83.42
[2022-05-16] MEDS ORDERED: predniSONE 5 MG TAB PO SCH (09:00)
== END 2022-05-14 12:29 | disposition home or self-care (01) | DRG 208 ==
LOC: ED 10:40 → SUATTDRO 18:31 → 3N 18:31 → 2S 05-09 21:52 → 1E 05-10 18:34 → 4W 05-12 15:54